=== PATIENT | male | born 1935 | race Caucasian/White ===

== ENCOUNTER 2017-03-06 08:50 | Inpatient (IN) | payer MEDICARE, BC ==
[2017-02-26 11:02] VITALS: BMI 32.4
[~2017-03-06 08:50] MED LIST: ACETAMINOPHEN TAB 500 MG TAB PO ONE; HYDROmorphone 0.5 MG/0.5 ML SYRINGE IVP PRN; LIDOCAINE 1% 20 ML VIAL (10MG/ML) FOR IV START INTRADERMA PRN; MELOXICAM 7.5 MG TAB PO ONE; ONDANSETRON 4 MG/2 ML VIAL IVP ONE; ROPIVACAINE 246.25 MG, EPINEPHrine 0.5 MG, KETOROLAC 30 MG, cloNIDine HCL/PF 80 MCG, WA... MISCELLANE ONE; TRANEXAMIC ACID 1,000 MG in SODIUM CHLORIDE 0.9% 100 ML IVPB ONE
[2017-03-06] MEDS: LACTATED RINGERS 1,000 ML IV SCH ×2 (09:33→10:43)
[2017-03-06 09:34] LABS: Glucose,Whole Blood 94 mg/dL (75-99)
[2017-03-06] MEDS ORDERED: MIDAZOLAM 2 MG/2 ML VIAL IVP ONE (09:48)
[2017-03-06] MEDS ORDERED: ePHEDrine 50 MG/ML 1 ML AMP ONE (10:44)
[2017-03-06] MEDS ORDERED: PHENYLEPHRINE-0.9% NACL SYG 1 MG/10 ML SYRINGE ONE (10:44)
[2017-03-06] MEDS ORDERED: TRANEXAMIC ACID 1,000 MG/10 ML VIAL ONE (10:44)
[2017-03-06] MEDS ORDERED: MIDAZOLAM 2 MG/2 ML VIAL ONE (10:44)
[2017-03-06] MEDS ORDERED: PROPOFOL 10 MG/ML 20 ML VIAL IV ONE (10:44)
[2017-03-06] MEDS ORDERED: SODIUM CHLORIDE 0.9% 100 ML BAG ONE (10:44)
[2017-03-06] MEDS ORDERED: fentaNYL (PF) 50 MCG/ML 2 ML AMP ONE (10:44)
[2017-03-06] MEDS: ceFAZolin IN SWFI 2 GM/20 ML SYRINGE IVP ONE ×2 (10:51→11:07)
[2017-03-06] MEDS ORDERED: ceFAZolin 3,000 MG in SODIUM CHLORIDE 0.9% IRRIGATIO 3,000 ML IRRIGATION ONE (10:52)
[2017-03-06] MEDS ORDERED: NA PHOS,M-B/NA PHOS,DI-BA 133 ML ENEMA RECTAL PRN (11:08)
[2017-03-06] MEDS ORDERED: MAGNESIUM HYDROXIDE 2,400 MG/10 ML CUP PO PRN (11:08)
[2017-03-06] MEDS ORDERED: ONDANSETRON 4 MG/2 ML VIAL IVP PRN (11:08)
[2017-03-06] MEDS ORDERED: NALOXONE 0.4 MG/ML 1 ML VIAL IV PRN (11:08)
[2017-03-06] MEDS ORDERED: DIAZEPAM 5 MG TAB PO PRN ×2 (11:08)
[2017-03-06] MEDS ORDERED: HYDROmorphone 1 MG/ML 1 ML SYRINGE IVP PRN ×4 (11:08)
[2017-03-06] MEDS ORDERED: BISACODYL 10 MG SUPP RECTAL PRN (11:08)
[2017-03-06] MEDS ORDERED: HYDROcodone/APAP 5-325MG 1 EACH TAB PO PRN (11:08)
[2017-03-06] MEDS ORDERED: ROPIVACAINE 1,100 MG, SODIUM CHLORIDE 0.9% 330 ML MISCELLANE PRN ×2 (11:12)
--- NOTE | 2017-03-06 11:13 | P.ONQ ---
Anesthesiology Proc Note - PNB - Peripheral Nerve Block Performed Left Adductor Canal Indication: Acute Post-Operative Pain, Requested by physician (Leonard Chappell) Sedation Type: Sedate with meaningful contact maintained Preparation: Sterile Dressing Position: Supine Catheter: Indwelling Needle Types: Other (see comment) (Bin) Needle Size: 100mm (4") Needle Gauge: 20 Technique: Ultrasound Injectate: 0.5% Ropivacaine (see comment for volume) (20cc) Blood Aspirated: No Pain Paresthesia on Injection Noted: No Resistance on Injection: Normal Events: Uneventful and Well Tolerated
[2017-03-06] MEDS ORDERED: LACTATED RINGERS 1,000 ML IV ONE (11:41)
--- NOTE | 2017-03-06 12:19 | P.OP ---
Date of Procedure: 03/06/17 Preoperative Diagnosis: Severe osteoarthritis left knee Postoperative Diagnosis: Severe osteoarthritis left knee Procedure(s) Performed: Left total knee arthroplasty Implants: Garcia [employer] Nephew Oxinium femoral component size 6, left Garcia & Nephew Abbey II left nonporous tibial baseplate size 6 Garcia [employer] Nephew size 11 mm Legion XLPE high flexion articular insert, size 5-6 Garcia [employer] Nephew Abbey II resurfacing patellar component, 32 mm All components were cemented using Tracy bone cement.. The articulation is Oxinium on polyethylene. Anesthesia: spinal Surgeon: Leonard Chappell Electric Refrigerator Servicer #1: Jackelyn Hagen Estimated Blood Loss (ml): 50 Pathology: other (Bone and cartilage) Condition: stable Disposition: PACU Indications for Procedure: After failure of conservative treatment we discussed the surgical and nonsurgical treatment options at length. Patient wishes to proceed with a total knee arthroplasty. Complications specific to this procedure were discussed at length, including but not limited to infection, bleeding, stiffness , and nerve injury. Patient is aware of all these complications and informed consent was obtained Operative Findings: The operative findings are consistent with severe osteoarthritis of the left knee Description of Procedure: Patient was seen in the preoperative area consent was reviewed and operative site was marked with a skin marker. An adductor canal pain catheter was placed by anesthesia in the preoperative area. Patient was then brought to the operating room and given preoperative antibiotics intravenously. A spinal anesthetic was administered by the anesthesia department. A tourniquet was placed on the upper thigh and the lower extremity was prepped and draped in usual sterile fashion. A gram of transexamic acid was given. A universal timeout was then performed which confirmed the patient's name, surgical site, ALLERGIES, and consent. The lower extremity was then exsanguinated and tourniquet was inflated to 250 mmHg. A standard and anterior midline approach to the knee was performed. The skin and subcutaneous tissue was dissected down to the patellar tendon. A medial parapatellar arthrotomy was then performed. The knee was then extended, the patellar was everted, and the knee was again flexed. Anterior horns of both menisci were excised, and a release was performed to the posterior medial aspect of the knee. On gross visual inspection, there was complete loss of articular cartilage in the medial and patellofemoral joint spaces. There was also significant cartilage damage in the lateral compartment. There were multiple periarticular osteophytes which were then removed with a Ronguer. The femoral canal was then opened with the appropriate drill, and the intramedullary femoral cutting guide was then placed and set for 4 of valgus. The distal femoral cutting block was then pinned in place, and the distal femur was then cut. The cutting block was then removed and the cut was checked for flatness. Next, the sizing guide was then placed and set for 3 external rotation based off of the epicondylar axis and Whitesides line. After the femur was sized, the appropriate 4-in-1 cutting block was then pinned in place. The anterior condyles were cut without notching. The posterior and chamfer cuts were performed while protecting the collateral ligaments. The cutting block was then removed, and the femoral canal was plugged with autologous bone. Attention was then directed to the tibia. The remaining ACL was removed with a Ronguer, and the tibia was then gently subluxed forward with a large bent knee retractor. Any remaining menisci was excised. The posterior lateral corner was cauterized in order to cauterize the lateral geniculate artery. The extra medullary tibial cutting guide was then placed, set for the appropriate rotation , slope, and depth of resection. The proximal tibia cutting guide was then pinned in place. Proximal tibia was then cut and sized. Next trials were then placed with the appropriate-sized insert. The knee was able to fully extend and flex to 130 and was stable throughout all range of motion. The knee was then extended, patella everted. Patella was then measured, and then using an osteotomy guide, the patella was cut at the appropriate level. The patella was then measured and drilled and the patella trial was then placed. The knee was then taken through range of motion with the patella trial and the patella tracked normally. The knee was then extended patella trial was then removed and the patella was everted. Knee was then flexed and lug holes were drilled through the femoral trial and the femoral trial was then removed. The tibial was then exposed, and the tibial broach guide was then pinned in place after it was set for the appropriate rotation to allow for the most coverage without overhang. The tibia was then reamed and broached. The cut surfaces of bone were then irrigated with pulsatile lavage. The posterior structures were injected with the ropivacaine solution. The knee was also irrigated with Irrisept solution. The components were then opened, the cement was mixed, and the components were then cemented in place. The cement was allowed to harden with the knee in full extension. While the cement was hardening, the remaining soft tissues were then injected with a ropivacaine solution, which consisted of 246.25 mg of ropivacaine, 0.5 mg of epinephrine, 30 mg of Toradol, 80 g of clonidine, and 48.45 mL of sterile water, for a total of 100 mL of fluid injected. After the cemented hardened. The tourniquet was released, and hemostasis was obtained. A second gram of transexamic acid was given. The knee was again irrigated. The knee was again taken through range of motion and found to be stable throughout all range of motion of 0-130 , and the patella tracked normally. The fascia was then closed with #2 strata fix suture. The subcutaneous tissue was closed with 3-0 Vicryl and 3-0 strata fix. Dermabond glue was used for the skin and placed with the knee in flexion. The patient was placed in a sterile silver dressing. Patient was then transferred to recovery room in stable condition. The energy assistant BAKARI Lobo was required due the complexity surgery and the need for a skilled surgical instrument technician. She assisted in positioning, draping, retraction, and closure of the wound.
--- NOTE | 2017-03-06 13:18 | XR ---
EXAMINATION TYPE: XR knee limited LT DATE OF EXAM: 03/06/2017 COMPARISON: NONE HISTORY: 81-year-old male evaluation for postoperative abnormality and alignment TECHNIQUE: 2 views FINDINGS: Images show placement of left total knee arthroplasty. Both distal femoral and proximal tibial compon ents of the prosthesis appear well seated without periprosthetic fracture. There is anterior soft tis veronica swelling with soft tissue gas as well as joint effusion and intra-articular air relating to recen t operation. Saphenous vein harvesting surgical clips are present medially. Diffuse muscular atrophy. IMPRESSION: Uncomplicated postoperative appearance left total knee arthroplasty.
[2017-03-06] MEDS: SODIUM CHLORIDE 0.9% 1,000 ML IV SCH (15:15)
[2017-03-06] MEDS: HYDROcodone/APAP 5-325MG 1 EACH TAB PO PRN ×2 (18:21→23:24)
[2017-03-06 19:35] VITALS: RESP 16
[2017-03-06] MEDS: ceFAZolin IN SWFI 2 GM/20 ML SYRINGE IVP SCH (20:59)
[2017-03-06] MEDS: METOPROLOL TARTRATE 50 MG TAB PO SCH (20:59)
[2017-03-06] MEDS: ASPIRIN 325 MG TAB PO SCH (20:59)
[2017-03-06] MEDS ORDERED: SENNOSIDES-DOCUSATE SODIUM 1 EACH TAB PO SCH (21:00)
[2017-03-06] MEDS: hydrOXYzine PAMOATE 25 MG CAP PO PRN (23:25)
--- NOTE | 2017-03-07 01:02 | P.CONS ---
History of Present Illness - Reason for Consult Consult date: 03/06/17 Medical management of hypertension and CAD and other medical problems - Chief Complaint Elective left knee total arthroplasty - History of Present Illness Patient is a 81-year-old pleasant male with a known history of coronary artery disease with prior stent placement and CABG in 2009, GERD, are sure that his hand BPH was admitted to the hospital for left total knee arthroplasty due to osteoarthritis. Currently pain is controlled with pain pump. No complaints of chest pain or short of breath. No nausea vomiting or abdominal pain. Patient tolerated the procedure very well. Currently sitting in a chair. No fever no chills. No nausea vomiting. Denied any other problems at this time Review of Systems Constitutional: Patient denies any fever or chills . No generalized weakness or weight loss. Abdomen: Patient denied nausea vomiting and diarrhea and abdominal pain. Cardiovascular: Patient denies any chest pain or short of breath no palpitations. Respiratory: patient denied any cough is from production. No shortness of breath Neurologic: Patient denied any numbness or tingling headache. Musculoskeletal: Patient denies any complaints of joint swelling or deformity. Skin: Negative Psychiatric: Negative Endocrine: No heat or cold intolerance. No recent weight gain. Genitourinary: No dysuria or hematuria. All other 14 point ROS negative except the above Past Medical History Past Medical History: Coronary Artery Disease (CAD), Eye Disorder, GERD/Reflux, Osteoarthritis (OA), Prostate Disorder Additional Past Medical History / Comment(s): "elevated kidney blood test", legally blind, uses knee brace on left knee History of Any Multi-Drug Resistant Organisms: None Reported Past Surgical History: Coronary Bypass/CABG, Heart Catheterization With Stent, Tonsillectomy Additional Past Surgical History / Comment(s): 2 cardiac stents, CABG 2009, rt knee replacement, oh cataracts Past Anesthesia/Blood Transfusion Reactions: Motion Sickness Additional Past Anesthesia/Blood Transfusion Reaction / Comm: motiion sickness as child, Date of Last Stent Placement:: 12/2009 Past Psychological History: No Psychological Hx Reported Smoking Status: Former smoker Past Alcohol Use History: Occasional Additional Past Alcohol Use History / Comment(s): started smoking age 26, quit smoking age 51, 1 PPD Past Drug Use History: None Reported - Past Family History Mother Family Medical History: No Reported History Medications and Allergies Home Medications Medication Instructions Recorded Confirmed Type Aspirin [Adult Low Dose Aspirin EC] 81 mg PO DAILY 02/26/17 03/06/17 History Celecoxib [CeleBREX] 100 mg PO HS 02/26/17 03/06/17 History Cholecalciferol [Vitamin D3] 1,000 unit PO DAILY 02/26/17 03/06/17 History Cyclobenzaprine [Flexeril] 10 mg PO DAILY 02/26/17 03/06/17 History Lovastatin [Mevacor] 20 mg PO DAILY 02/26/17 03/06/17 History Metoprolol Tartrate [Lopressor] 50 mg PO BID 02/26/17 03/06/17 History Multivitamins, Thera [Multivitamin 1 tab PO DAILY 02/26/17 03/06/17 History (formulary)] Tamsulosin [Flomax] 0.4 mg PO DAILY 02/26/17 03/06/17 History Allergies Allergy/AdvReac Type Severity Reaction Status Date / Time No Known Allergies Allergy Verified 03/06/17 09:01 Physical Exam Vitals: Vital Signs Temp Pulse Pulse Resp BP BP Pulse Ox 03/06/17 19:28 97.2 F L 66 16 172/79 03/06/17 16:45 66 14 149/86 03/06/17 16:41 66 14 03/06/17 16:30 66 16 132/63 96 03/06/17 16:15 65 16 139/77 98 03/06/17 16:00 66 16 145/63 97 03/06/17 15:45 65 16 149/86 98 03/06/17 15:30 71 16 116/58 98 03/06/17 15:15 66 16 142/81 98 03/06/17 15:00 68 16 116/58 95 03/06/17 14:45 66 16 142/81 96 03/06/17 14:30 64 16 135/75 98 03/06/17 14:15 98.6 F 62 16 139/73 99 03/06/17 13:55 64 14 142/74 96 03/06/17 13:42 63 14 144/76 98 03/06/17 13:27 64 14 162/72 96 03/06/17 13:12 64 14 129/71 97 03/06/17 12:57 64 14 125/67 95 03/06/17 12:42 97.5 F L 70 16 121/61 96 03/06/17 10:10 69 16 136/78 99 03/06/17 09:20 97.5 F L 71 20 163/87 98 Intake and Output 03/06/17 03/06/17 03/06/17 06:59 14:59 22:59 Intake Total 1801 500 Output Total 50 Balance 1751 500 Intake: IV 1801 Oral 500 Output: Estimated Blood Loss 50 Other: # Voids 1 PHYSICAL EXAMINATION: Patient is lying in the bed comfortably, no acute distress, awake alert and oriented.. HEENT: Normocephalic. Neck is supple. Pupils reactive. Nostrils clear. Oral cavity is moist. Ears reveal no drainage. Neck reveals no JVD, carotid bruits, or thyromegaly. CHEST EXAMINATION: Trachea is central. Symmetrical expansion. Lung mart clear to auscultation and percussion. CARDIAC: Normal S1, S2 with no gallops. No murmurs ABDOMEN: Soft. Bowel sounds normal. No organomegaly. No abdominal bruits. Extremities: reveal no edema. No clubbing or cyanosis Neurologically awake, alert, oriented x3 with well-coordinated movements. Patient is legally blind Skin: No rash or skin lesions. Psychiatric: Operative. Nonsuicidal Musculoskeletal: No joint swelling or deformity. Normal range of motion. Assessment and Plan Assessment: #1 left total knee arthroplasty postoperative day 0 #2 osteoarthritis of multiple joints with prior right knee arthroplasty #3 bilateral cataracts and legally blind #4 coronary artery disease with stent placement and CABG in 2009 #5 BPH #6 GERD #7 History of smoking. started smoking age 26, quit smoking age 51, 1 PPD Plan: Patient will be continued on pain medications currently on pump. Will continue the home medications and encouraged ablation. Continue the DVT prophylaxis and follow closely. Incentive spirometry and bowel regimen. Further recommendations based on the clinical course. Thank you for your consult
[2017-03-07] MEDS: hydrOXYzine PAMOATE 25 MG CAP PO PRN (04:30)
[2017-03-07] MEDS: HYDROcodone/APAP 5-325MG 1 EACH TAB PO PRN ×2 (04:30→09:45)
[2017-03-07] MEDS: SODIUM CHLORIDE 0.9% 1,000 ML IV SCH (04:34)
[2017-03-07] MEDS: ceFAZolin IN SWFI 2 GM/20 ML SYRINGE IVP SCH (04:34)
[2017-03-07] MEDS: LACTATED RINGERS 1,000 ML IV SCH (05:26)
[2017-03-07 07:42] LABS: Basophils % (A) 1 %; CH 33.2; Eosinophils # (A) 0.2 k/uL (0-0.7); Eosinophils % (A) 4 %; HCT 40.6 % (39.0-53.0); HDW 2.52; HGB 12.8 gm/dL (13.0-17.5); Luc # (Auto) 0.07; Luc % (Auto) 1; Lymphocytes # (A) 0.8 k/uL (1.0-4.8); Lymphocytes % (A) 17 %; MCH 31.8 pg (25.0-35.0); MCHC 31.5 g/dL (31.0-37.0); Monocytes # (A) 0.4 k/uL (0-1.0); Monocytes % (A) 8 %; Neutrophils # (A) 3.4 k/uL (1.3-7.7); Neutrophils % (A) 69 %; RBC 4.02 m/uL (4.30-5.90); RDW 12.2 % (11.5-15.5)
--- NOTE | 2017-03-07 07:50 | P.PN ---
Progress Note - Text The patient is status post left adductor canal catheter placement. The catheter was placed for postoperative pain control, status post total left arthroplasty. Ropivacaine 0.2% is infusing at 8 mLs per hour. The patient has no complaints of left lower extremity numbness or weakness. Patient's VAS score is 2-10. Assessment: Patient's adductor canal catheter is in place and working appropriately. Plan: continue infusion and adjust it as needed.
[2017-03-07 08:22] VITALS: BP 150/84; PULSE 68; TEMP 97.8
[2017-03-07] MEDS ORDERED: MELOXICAM 7.5 MG TAB PO SCH (09:00)
[2017-03-07] MEDS: ASPIRIN 325 MG TAB PO SCH (09:47)
[2017-03-07] MEDS: METOPROLOL TARTRATE 50 MG TAB PO SCH (09:47)
--- NOTE | 2017-03-07 09:56 | P.DS ---
Providers Date of admission: 03/06/17 08:50 Expected date of discharge: 03/07/17 Attending physician: Leonard Chappell Consults: 03/06/17 11:08 Consult Physician Routine Consulting Provider: Destinee Lee Consult Reason/Comments: medical management Do you want consulting provider notified?: Yes Primary care physician: Lucinda Suh - Discharge Diagnosis(es) (1) Primary osteoarthritis of left knee Current Visit: Yes Status: Acute (2) S/P total knee arthroplasty Current Visit: Yes Status: Acute Hospital Course: This is a 81-year-old male with known history of degenerative arthritis of the left knee. The patient presents for evaluation. After discussion and consideration patient elects to proceed with total knee arthroplasty. The patient is seen preoperatively by Dr. Leonard Chappell and cleared for surgery. Patient is admitted to [facility] on 03/06/2017 for total knee arthroplasty. The procedures performed without complication or sequelae. The patient is doing well postoperatively. Labs and vital signs are stable on day of discharge. On day of discharge patient's knee incision is healing well. There is minimal erythema. There is no drainage noted at this time. There is minimal soft tissue swelling to the knee. Patient has full foot and ankle motion without difficulty or pain. Neurovascular status to the left lower extremity is intact. Patient is discharged home in good condition. Please see med rec for accurate list of home medications. Plan - Discharge Summary Discharge Rx Participant: Yes New Discharge Prescriptions: New Aspirin 325 mg PO BID #60 tab HYDROcodone/APAP 5-325MG [[place] 5-325] 1 - 2 tab PO Q4-6H PRN #90 tab PRN Reason: Pain Sennosides-Docusate Sodium [Senokot-S] 1 tab PO BID #60 tablet No Action Metoprolol Tartrate [Lopressor] 50 mg PO BID Celecoxib [CeleBREX] 100 mg PO HS Tamsulosin [Flomax] 0.4 mg PO DAILY Lovastatin [Mevacor] 20 mg PO DAILY Cholecalciferol [Vitamin D3] 1,000 unit PO DAILY Multivitamins, Thera [Multivitamin (formulary)] 1 tab PO DAILY Aspirin [Adult Low Dose Aspirin EC] 81 mg PO DAILY Cyclobenzaprine [Flexeril] 10 mg PO DAILY Discharge Medication List Aspirin [Adult Low Dose Aspirin EC] 81 mg PO DAILY 02/26/17 [History] Celecoxib [CeleBREX] 100 mg PO HS 02/26/17 [History] Cholecalciferol [Vitamin D3] 1,000 unit PO DAILY 02/26/17 [History] Cyclobenzaprine [Flexeril] 10 mg PO DAILY 02/26/17 [History] Lovastatin [Mevacor] 20 mg PO DAILY 02/26/17 [History] Metoprolol Tartrate [Lopressor] 50 mg PO BID 02/26/17 [History] Multivitamins, Thera [Multivitamin (formulary)] 1 tab PO DAILY 02/26/17 [History ] Tamsulosin [Flomax] 0.4 mg PO DAILY 02/26/17 [History] Aspirin 325 mg PO BID #60 tab 03/07/17 [Rx] HYDROcodone/APAP 5-325MG [[place] 5-325] 1 - 2 tab PO Q4-6H PRN #90 tab 03/07/17 [ Rx] Sennosides-Docusate Sodium [Senokot-S] 1 tab PO BID #60 tablet 03/07/17 [Rx] Follow up Appointment(s)/Referral(s): [facility], [NON-STAFF] - Leonard Chappell DO [Doctor of Osteopathic Medicine] - 1 Week Ambulatory/Diagnostic Orders: Continuous Passive Motion (CPM) Machine [DME.AMB1] Time Frame: 3 Weeks, Location : Determined By Patient Activity/Diet/Wound Care/Special Instructions: Weightbearing as tolerated with a walker CPM 5-6h daily Leave dressing intact. May be removed by home care nurse in 7 days, 03/13/2017. May shower with dressing on. [facility] with questions or concerns [phone] Discharge Disposition: HOME WITH HOME HEALTH SERVICES
--- NOTE | 2017-03-08 01:18 | P.PN ---
Subjective Progress Note Date: 03/07/17 Principal diagnosis: Knee arthroplasty Patient is a 81-year-old pleasant male with a known history of coronary artery disease with prior stent placement and CABG in 2009, GERD, are sure that his hand BPH was admitted to the hospital for left total knee arthroplasty due to osteoarthritis. Currently pain is controlled with pain pump. No complaints of chest pain or short of breath. No nausea vomiting or abdominal pain. Patient tolerated the procedure very well. Currently sitting in a chair. No fever no chills. No nausea vomiting. Denied any other problems at this time 03/07/2017 Patient denied any new complaints today. Complains of right thigh stiffness with walking. But improved from yesterday. No nausea vomiting or abdominal pain. No acute overnight issues, patient is able to walk with physical therapy. Patient is being discharged home today. Objective - Vital Signs Vital signs: Vital Signs Temp 97.8 F 03/07/17 08:22 Pulse 68 03/07/17 08:22 Resp 16 03/07/17 00:20 BP 150/84 03/07/17 08:22 Pulse Ox 99 03/07/17 08:22 Intake & Output 03/06/17 03/07/17 03/07/17 18:59 06:59 18:59 Intake Total 1801 500 400 Output Total 50 Balance 1751 500 400 Intake: IV 1801 Oral 500 400 Output: Estimated Blood Loss 50 Other: # Voids 1 - Exam Patient is lying in the bed comfortably, no acute distress, awake alert and oriented.. HEENT: Normocephalic. Neck is supple. Pupils reactive. Nostrils clear. Oral cavity is moist. Ears reveal no drainage. Neck reveals no JVD, carotid bruits, or thyromegaly. CHEST EXAMINATION: Trachea is central. Symmetrical expansion. Lung mart clear to auscultation and percussion. CARDIAC: Normal S1, S2 with no gallops. No murmurs ABDOMEN: Soft. Bowel sounds normal. No organomegaly. No abdominal bruits. Extremities: reveal no edema. No clubbing or cyanosis Neurologically awake, alert, oriented x3 with well-coordinated movements. Patient is legally blind Skin: No rash or skin lesions. Psychiatric: Operative. Nonsuicidal Musculoskeletal: No joint swelling or deformity. Normal range of motion. Left knee surgical site intact - Labs CBC & Chem 7: 03/07/17 07:05 Labs: Abnormal Lab Results - Last 24 Hours (Table) 03/07/17 Range/Units 07:05 RBC 4.02 L (4.30-5.90) m/uL Hgb 12.8 L (13.0-17.5) gm/dL MCV 101.0 H (80.0-100.0) fL Lymphocytes # 0.8 L (1.0-4.8) k/uL Assessment and Plan Assessment: #1 left total knee arthroplasty postoperative day 1 #2 osteoarthritis of multiple joints with prior right knee arthroplasty #3 bilateral cataracts and legally blind #4 coronary artery disease with stent placement and CABG in 2009 #5 BPH #6 GERD #7 History of smoking. started smoking age 26, quit smoking age 51, 1 PPD Plan: Patient will be continued on home medications and encouraged ablation. Continue the DVT prophylaxis. Incentive spirometry and bowel regimen. Patient is a stable to be discharged home.
== END 2017-03-07 14:38 | disposition home health service (06) | DRG 470 ==
LOC: 2ORMAIN 08:50 → 3SUR 13:21
PROVIDERS: ADMIT Orthopaedic Surgery; ATTEND Orthopaedic Surgery
PROC: 0SRD069 Replacement of Left Knee Joint with Oxidized Zirconium on Polyethylene Synthetic Substitute, Cemented, Open Approach (ICD-10-PCS; principal; 2017-03-06 10:30)
DX: M17.12 Unilateral primary osteoarthritis, left knee (principal); I12.9 Hypertensive chronic kidney disease with stage 1 through stage 4 chronic kidney disease, or unspecified chronic kidney disease; H54.8 Legal blindness, as defined in USA; I25.10 Atherosclerotic heart disease of native coronary artery without angina pectoris; K21.9 Gastro-esophageal reflux disease without esophagitis; N40.0 Benign prostatic hyperplasia without lower urinary tract symptoms; Z79.82 Long term (current) use of aspirin; Z79.899 Other long term (current) drug therapy; Z87.891 Personal history of nicotine dependence; Z95.5 Presence of coronary angioplasty implant and graft; Z96.651 Presence of right artificial knee joint; Z95.1 Presence of aortocoronary bypass graft; N18.9 Chronic kidney disease, unspecified
CPT/HCPCS: 36415; 71020; 80053; 81003; 83605; 85025; 87040; 87086; 88300; 99283

== ENCOUNTER 2017-03-07 22:56 | Emergency (ER) | payer MEDICARE, BC ==
[2017-03-07 23:01] VITALS: TEMP 100.3
--- NOTE | 2017-03-07 23:19 | ED ---
Fever HPI - General Chief Complaint: Fever Stated Complaint: fever Time Seen by Provider: 03/07/17 23:03 Source: patient, family Mode of arrival: ambulatory Limitations: no limitations - History of Present Illness Initial Comments: This patient is an 81-year-old man who presents to be evaluated after he felt flushed all day. The patient had TKA performed here by Dr. Chappell yesterday. The patient states that he was sent home today. He has been feeling like he had a fever but did not have a working thermometer at home. He has also not been feeling his usual self, stating that he has had some fatigue. He also reports that he has not had any sleep since having had surgery. The patient is denying cough, dyspnea, change in urination or bowel movements, any increase in pain at the surgical site or rash. Patient does have a little bit of sore throat, but is not having any difficulty with taking fluids or swallowing. MD Complaint: fever -: hour(s) Temperature Source: subjective Associated Symptoms: sore throat Treatments Prior to Arrival: none - Related Data Home Medications Medication Instructions Recorded Confirmed Cholecalciferol [Vitamin D3] 1,000 unit PO DAILY 02/26/17 03/07/17 Cyclobenzaprine [Flexeril] 5 mg PO DAILY 02/26/17 03/07/17 Lovastatin [Mevacor] 20 mg PO DAILY 02/26/17 03/07/17 Metoprolol Tartrate [Lopressor] 50 mg PO BID 02/26/17 03/07/17 Multivitamins, Thera [Multivitamin 1 tab PO DAILY 02/26/17 03/07/17 (formulary)] Tamsulosin [Flomax] 0.4 mg PO DAILY 02/26/17 03/07/17 Omeprazole 20 mg PO DAILY PRN 03/07/17 03/07/17 Previous Rx's Medication Instructions Recorded Aspirin 325 mg PO BID #60 tab 03/07/17 HYDROcodone/APAP 5-325MG [[place] 1 - 2 tab PO Q4-6H PRN #90 tab 03/07/17 5-325] Sennosides-Docusate Sodium 1 tab PO BID #60 tablet 03/07/17 [Senokot-S] Allergies Allergy/AdvReac Type Severity Reaction Status Date / Time No Known Allergies Allergy Verified 03/07/17 23:17 Review of Systems ROS Statement: Those systems with pertinent positive or pertinent negative responses have been documented in the HPI. ROS Other: All systems not noted in ROS Statement are negative. Constitutional: Reports: fever. Denies: chills ENT: Reports: throat pain. Denies: ear pain Respiratory: Denies: cough, dyspnea Cardiovascular: Denies: chest pain, palpitations, edema, syncope Gastrointestinal: Denies: abdominal pain, vomiting, diarrhea Genitourinary: Denies: dysuria, frequency, hematuria Musculoskeletal: Denies: back pain Skin: Denies: rash Neurological: Denies: headache Past Medical History Past Medical History: Coronary Artery Disease (CAD), Eye Disorder, GERD/Reflux, Osteoarthritis (OA), Prostate Disorder Additional Past Medical History / Comment(s): "elevated kidney blood test", legally blind, uses knee brace on left knee History of Any Multi-Drug Resistant Organisms: None Reported Past Surgical History: Coronary Bypass/CABG, Heart Catheterization With Stent, Tonsillectomy Additional Past Surgical History / Comment(s): 2 cardiac stents, CABG 2009, rt knee replacement, oh cataracts Past Anesthesia/Blood Transfusion Reactions: Motion Sickness Additional Past Anesthesia/Blood Transfusion Reaction / Comment(s): motiion sickness as child, Date of Last Stent Placement:: 12/2009 Past Psychological History: No Psychological Hx Reported Smoking Status: Former smoker Past Alcohol Use History: Occasional Past Drug Use History: None Reported - Past Family History Mother Family Medical History: No Reported History General Exam Limitations: no limitations General appearance: alert, in no apparent distress Head exam: Present: atraumatic, normocephalic Eye exam: Present: normal appearance Neck exam: Present: normal inspection, full ROM Respiratory exam: Present: normal lung sounds bilaterally. Absent: respiratory distress, wheezes, rales, rhonchi, stridor Cardiovascular Exam: Present: regular rate, normal rhythm, normal heart sounds. Absent: systolic murmur, diastolic murmur, rubs, gallop GI/Abdominal exam: Present: soft. Absent: distended, tenderness, guarding, rebound, mass Extremities exam: Present: other (The patient does have some soft tissue swelling about the left knee. The surgical incision has a normal postoperative appearance, without warmth, erythema or any drainage.). Absent: tenderness, pedal edema, calf tenderness Back exam: Present: normal inspection. Absent: CVA tenderness (R), CVA tenderness (L) Neurological exam: Present: alert Skin exam: Present: warm, dry, intact, normal color. Absent: rash Course Vital Signs 03/07/17 22:58 Temperature 100.3 F H Pulse Rate 87 Respiratory 20 Rate Blood Pressure 145/80 O2 Sat by Pulse 97 Oximetry Medical Decision Making - Medical Decision Making Patient is an 81-year-old man status post left TKA. He had some borderline fever but really no other symptoms. Our workup here is negative and I was informing of this, and then going to page the orthopedist on-call for the patient states that he is now awake for that and will call the morning. Discussed appropriate follow-up as well as return parameters. - Lab Data Result diagrams: 03/07/17 23:32 03/07/17 23:32 Lab Results 03/07/17 03/07/17 03/07/17 Range/Units 23:32 23:32 23:32 WBC 5.5 (3.8-10.6) k/uL RBC 3.92 L (4.30-5.90) m/uL Hgb 12.8 L (13.0-17.5) gm/dL Hct 38.2 L (39.0-53.0) % MCV 97.5 (80.0-100.0) fL MCH 32.6 (25.0-35.0) pg MCHC 33.4 (31.0-37.0) g/dL RDW 13.4 (11.5-15.5) % Plt Count 156 (150-450) k/uL Neutrophils % 75 % Lymphocytes % 11 % Monocytes % 8 % Eosinophils % 3 % Basophils % 1 % Neutrophils # 4.2 (1.3-7.7) k/uL Lymphocytes # 0.6 L (1.0-4.8) k/uL Monocytes # 0.5 (0-1.0) k/uL Eosinophils # 0.2 (0-0.7) k/uL Basophils # 0.0 (0-0.2) k/uL Sodium 136 L (137-145) mmol/L Potassium 4.9 (3.5-5.1) mmol/L Chloride 104 (98-107) mmol/L Carbon Dioxide 24 (22-30) mmol/L Anion Gap 8 mmol/L BUN 32 H (9-20) mg/dL Creatinine 1.70 H (0.66-1.25) mg/dL Est GFR (MDRD) Af Amer 47 (>60 ml/min/1.73 sqM) Est GFR (MDRD) Non-Af 39 (>60 ml/min/1.73 sqM) Glucose 92 (74-99) mg/dL Plasma Lactic Acid Sandeep 0.7 (0.7-2.0) mmol/L Calcium 8.9 (8.4-10.2) mg/dL Total Bilirubin 0.7 (0.2-1.3) mg/dL AST 25 (17-59) U/L ALT 30 (21-72) U/L Alkaline Phosphatase 91 (38-126) U/L Total Protein 5.9 L (6.3-8.2) g/dL Albumin 3.4 L (3.5-5.0) g/dL Urine Color Urine Appearance (Clear) Urine pH (5.0-8.0) Ur Specific [place] (1.001-1.035) Urine Protein (Negative) Urine Glucose (UA) (Negative) Urine Ketones (Negative) Urine Blood (Negative) Urine Nitrite (Negative) Urine Bilirubin (Negative) Urine Urobilinogen (<2.0) mg/dL Ur Leukocyte Esterase (Negative) 03/08/17 Range/Units 00:00 WBC (3.8-10.6) k/uL RBC (4.30-5.90) m/uL Hgb (13.0-17.5) gm/dL Hct (39.0-53.0) % MCV (80.0-100.0) fL MCH (25.0-35.0) pg MCHC (31.0-37.0) g/dL RDW (11.5-15.5) % Plt Count (150-450) k/uL Neutrophils % % Lymphocytes % % Monocytes % % Eosinophils % % Basophils % % Neutrophils # (1.3-7.7) k/uL Lymphocytes # (1.0-4.8) k/uL Monocytes # (0-1.0) k/uL Eosinophils # (0-0.7) k/uL Basophils # (0-0.2) k/uL Sodium (137-145) mmol/L Potassium (3.5-5.1) mmol/L Chloride (98-107) mmol/L Carbon Dioxide (22-30) mmol/L Anion Gap mmol/L BUN (9-20) mg/dL Creatinine (0.66-1.25) mg/dL Est GFR (MDRD) Af Amer (>60 ml/min/1.73 sqM) Est GFR (MDRD) Non-Af (>60 ml/min/1.73 sqM) Glucose (74-99) mg/dL Plasma Lactic Acid Sandeep (0.7-2.0) mmol/L Calcium (8.4-10.2) mg/dL Total Bilirubin (0.2-1.3) mg/dL AST (17-59) U/L ALT (21-72) U/L Alkaline Phosphatase (38-126) U/L Total Protein (6.3-8.2) g/dL Albumin (3.5-5.0) g/dL Urine Color Yellow Urine Appearance Clear (Clear) Urine pH 5.0 (5.0-8.0) Ur Specific [place] 1.012 (1.001-1.035) Urine Protein Negative (Negative) Urine Glucose (UA) Negative (Negative) Urine Ketones Negative (Negative) Urine Blood Negative (Negative) Urine Nitrite Negative (Negative) Urine Bilirubin Negative (Negative) Urine Urobilinogen <2.0 (<2.0) mg/dL Ur Leukocyte Esterase Negative (Negative) Disposition Clinical Impression: S/P total knee arthroplasty, Fever Disposition: HOME SELF-CARE Condition: Fair Instructions: Fever in Adults (ED) Referrals: Lucinda Suh III, MD [Primary Care Provider] - 1-2 days
[2017-03-07 23:43] LABS: Basophils % (A) 1 %; CH 32.6; CHCM 33.6; Eosinophils # (A) 0.2 k/uL (0-0.7); Eosinophils % (A) 3 %; HCT 38.2 % (39.0-53.0); HDW 2.37; HGB 12.8 gm/dL (13.0-17.5); Luc # (Auto) 0.08; Luc % (Auto) 2; Lymphocytes # (A) 0.6 k/uL (1.0-4.8); Lymphocytes % (A) 11 %; MCH 32.6 pg (25.0-35.0); MCHC 33.4 g/dL (31.0-37.0); MCV 97.5 fL (80.0-100.0); Monocytes # (A) 0.5 k/uL (0-1.0); Monocytes % (A) 8 %; Neutrophils # (A) 4.2 k/uL (1.3-7.7); Neutrophils % (A) 75 %; RBC 3.92 m/uL (4.30-5.90); RDW 13.4 % (11.5-15.5); WBC 5.5 k/uL (3.8-10.6)
[2017-03-07 23:53] LABS: Calcium 8.9 mg/dL (8.4-10.2); Potassium 4.9 mmol/L (3.5-5.1); Total Bilirubin 0.7 mg/dL (0.2-1.3); Total Protein 5.9 g/dL (6.3-8.2)
--- NOTE | 2017-03-08 00:09 | XR ---
EXAMINATION TYPE: XR chest 2V DATE OF EXAM: 03/07/2017 COMPARISON: 12/19/2012 HISTORY: Fever TECHNIQUE: Frontal and lateral views of the chest are obtained. FINDINGS: Heart is enlarged. There is no gross heart failure. Lungs are clear of consolidation. Ther e is slight coarsening of the markings in the left lower lobe. Thoracic aorta is atheromatous. There are sternal wires. There is spurring in the thoracic spine. IMPRESSION: Cardiomegaly. Mild pulmonary fibrotic changes. No evidence of bronchopneumonia. No signi ficant change compared to old exam.
[2017-03-08 00:13] LABS: Appearance,Urine Clear (Clear); Bilirubin,Urine Negative (Negative); Glucose,Urine (UA) Negative (Negative); Ketones,Urine Negative (Negative); Leukocyte Esterase,Urine Negative (Negative); Nitrite,Urine Negative (Negative); Protein,Urine Negative (Negative); Specific Gravity,Urine 1.012 (1.001-1.035); UA Billing (MACRO vs. MICRO) CHEM; Urobilinogen,Urine <2.0 mg/dL (<2.0)
[2017-03-08 00:55] VITALS: BP 154/73; PULSE 79; RESP 16
== END 2017-03-08 00:55 | disposition home or self-care (01) ==
LOC: EC 22:56
DX: R50.9 Fever, unspecified (principal); R53.83 Other fatigue; Z96.652 Presence of left artificial knee joint; I25.10 Atherosclerotic heart disease of native coronary artery without angina pectoris; K21.9 Gastro-esophageal reflux disease without esophagitis; M19.90 Unspecified osteoarthritis, unspecified site; N42.9 Disorder of prostate, unspecified; H54.8 Legal blindness, as defined in USA; Z87.891 Personal history of nicotine dependence; Z79.899 Other long term (current) drug therapy; Z98.890 Other specified postprocedural states
CPT/HCPCS: 36415; 71020; 80053; 81003; 83605; 85025; 87040; 87086; 99283

== ENCOUNTER 2018-11-05 05:57 | Day surgery (SDC) | payer BC, MEDICARE ==
[~2018-11-05 05:57] MED LIST changes: -ACETAMINOPHEN TAB 500 MG TAB PO ONE; +ALPRAZolam 0.25 MG TAB PO PRN; +ALPRAZolam 0.5 MG TAB PO PRN; +ASPIRIN 325 MG TAB PO STA; +ATORVASTATIN 80 MG TAB PO STA; -HYDROmorphone 0.5 MG/0.5 ML SYRINGE IVP PRN; -LIDOCAINE 1% 20 ML VIAL (10MG/ML) FOR IV START INTRADERMA PRN; -MELOXICAM 7.5 MG TAB PO ONE; +NITROGLYCERIN SL TABS 0.4 MG TAB SUBLINGUAL PRN; -ONDANSETRON 4 MG/2 ML VIAL IVP ONE; -ROPIVACAINE 246.25 MG, EPINEPHrine 0.5 MG, KETOROLAC 30 MG, cloNIDine HCL/PF 80 MCG, WA... MISCELLANE ONE; -TRANEXAMIC ACID 1,000 MG in SODIUM CHLORIDE 0.9% 100 ML IVPB ONE
[2018-11-05] MEDS: SODIUM CHLORIDE 0.9% 1,000 ML IV SCH ×2 (06:30→11:32)
[2018-11-05] MEDS ORDERED: LIDOCAINE 1% INJ 10MG/ML (20 ML MDV) ONE (07:17)
[2018-11-05] MEDS ORDERED: fentaNYL (PF) 50 MCG/ML 2 ML AMP ONE (07:17)
[2018-11-05] MEDS ORDERED: fentaNYL (PF) 50 MCG/ML 2 ML AMP IV ONE (07:22)
[2018-11-05] MEDS ORDERED: LIDOCAINE 1% INJ 10MG/ML (20 ML MDV) SQ ONE (07:28)
[2018-11-05] MEDS ORDERED: CLOPIDOGREL 75 MG TAB ONE ×2 (07:48)
[2018-11-05] MEDS ORDERED: CLOPIDOGREL 75 MG TAB PO ONE (07:54)
[2018-11-05] MEDS ORDERED: BIVALIRUDIN BOLUS 250 MG/50 ML IV ONE (07:54)
[2018-11-05] MEDS ORDERED: BIVALIRUDIN 250 MG in SODIUM CHLORIDE 0.9% 50 ML IV ONE (07:55)
[2018-11-05] MEDS ORDERED: IOPAMIDOL-370 100ML BTL INJ ONE ×2 (07:58→08:01)
[2018-11-05] MEDS ORDERED: RX INFO: IV CONTRAST WAS GIVEN 1 EACH MISC MISCELLANE PRN (08:24)
[2018-11-05] MEDS ORDERED: MAG HYDROX/AL HYDROX/SIMETH 30 ML CUP PO PRN (08:24)
[2018-11-05] MEDS ORDERED: NITROGLYCERIN SL TABS 0.4 MG TAB SUBLINGUAL PRN (08:24)
[2018-11-05] MEDS ORDERED: ATROPINE SULFATE 0.1 MG/ML 10ML SYRINGE IV PRN (08:24)
[2018-11-05] MEDS ORDERED: ZOLPIDEM 5 MG TAB PO PRN (08:24)
[2018-11-05] MEDS ORDERED: PANTOPRAZOLE 40 MG TABLET PO PRN (08:25)
[2018-11-05] MEDS ORDERED: SODIUM CHLORIDE 0.9% 1,000 ML IV SCH (08:30)
--- NOTE | 2018-11-05 09:25 | CC ---
CARDIAC CATHETERIZATION REPORT Mr. Gaspar is an 82-year-old male with a known history of coronary artery disease, status post coronary artery bypass grafting in 2010, history of percutaneous revascularization who has been complaining of progressive dyspnea on exertion and underwent a myocardial perfusion imaging that revealed a fixed defect with some reversibility in the inferolateral wall. In view of that, recommendation was made regarding cardiac catheterization. The procedure as well as the risks and complications were discussed with the patient who is in full understanding and agreement. PROCEDURE: Patient was brought to experimental machining lab manager in a fasting semi-sedated state after receiving fentanyl and Benadryl and achieving moderate conscious sedated state. Using Xylocaine in the Seldinger technique, a 6-Thai sheath was introduced in the right femoral artery. Selective right and left coronary angiography was performed using 6-Thai 4 bend right José Miguel and 4.5 bend left José Miguel catheter. Multiple views of the coronary artery including hemiaxial views obtained. Following that, a 6-Thai tight pigtail catheter was introduced in the left ventricle and pressures were calculated. The right José Miguel catheter was used to cannulate the saphenous vein graft to the right coronary artery and the KUMAR to the LAD. Images of the grafts were obtained. Following that, the catheters were removed. Images were reviewed. FINDINGS: LEFT MAIN: This is a large-sized vessel bifurcating in the left circumflex, left anterior descending artery. Left main coronary artery has no evidence of high-grade stenosis. LEFT ANTERIOR DESCENDING ARTERY: This vessel is totally occluded proximally at the takeoff of the first septal and diagonal branch. There is minimal antegrade flow proximal to the total occlusion. There is a 99% stenosis. The rest of the vessel has no high-grade stenosis. LEFT CIRCUMFLEX: This is a large nondominant vessel giving rise to a large obtuse marginal branch. The stented segment of proximal left circumflex is patent with about 10% to 20% plaque. In the distal obtuse marginal branch, there is an eccentric 70% plaque. The rest of the vessel has no high-grade stenosis. RIGHT CORONARY ARTERY: This vessel is totally occluded proximally with no antegrade flow. SAPHENOUS VEIN GRAFT TO THE RIGHT CORONARY ARTERY: The proximal distal anastomotic sites are patent. The stented segment is patent. There is retrograde flow into the proximal right coronary artery. KUMAR TO LAD: The distal anastomotic site is patent. The flow into the LAD is brisk. There is no evidence of high-grade stenosis. LEFT VENTRICULOGRAM: Left ventriculogram is not performed. HEMODYNAMICS: There was no gradient across the aortic valve. The left ventricular end- diastolic pressure was 20 mmHg. CONCLUSION: 1. Chronically occluded LAD. 2. Chronically occluded right coronary artery. 3. Patent stent of the left circumflex with significant obstructive disease involving the obtuse marginal branch. 4. Patent saphenous vein graft to the right coronary artery. 5. Patent KUMAR to the LAD. 6. Calcified left main. RECOMMENDATION: In view of finding anatomy, I have recommended proceeding with angioplasty and stenting of the left circumflex. The procedure as well as risks and complications were discussed with the patient who is in full understanding and agreement. MMODL / IJN: [id number] /
--- NOTE | 2018-11-05 09:34 | PTCA ---
PERCUTANEOUSTRANS CORORONARY ANGIOGRAPHY Mr. Gaspar is an 82-year-old male with a history of coronary artery disease who presented with symptoms of progressive dyspnea on exertion underwent a cardiac catheterization that revealed evidence of obstructive disease involving the first obtuse marginal branch. In view of that, recommendation was made regarding angioplasty and stenting. The procedure as well as risks and the complications were discussed with the patient who is in full understanding and agreement. PROCEDURE: A 6-Romanian 4.5 FL guiding catheter introduced in the system. After cannulating the left main, a 0.014 balanced medium weight J-wire was advanced across the lesion, positioned in distal obtuse marginal branch. Subsequently another 0.014 balanced medium weight J- wire was advanced next to the first one in a rohan fashion. Following that, a 2.75 x 15 mm Xience Rose Marie stent was advanced, deployed and post dilated at 16 atmospheres. Following that, the balloon was removed and a 3.0 x 12 mm NC Trek balloon was advanced and one inflation at 14 atmospheres was done. After the last inflation, after appropriate wait the balloon and the guidewire were withdrawn back in the guiding catheter. Images were obtained repeated. Those images reveal stable successful stenting. At that point, the guiding catheter, the balloon and the guidewire were removed. The sheath was sutured in place. The patient was returned to his room in stable condition. Of note, he had no significant EKG changes or chest discomfort with the inflations. He received Angiomax per protocol as well as oral loading dose of clopidogrel. RESULTS: Successful stenting of the first obtuse marginal branch with reduction of stenosis from 70% to 0%. RECOMMENDATION: Patient be continued on aspirin, Plavix and statin. The importance of dual antiplatelet treatment were discussed with the patient and his family and they are in full understanding and agreement. MMODL / IJN: [id number] /
[2018-11-05] MEDS: ATORVASTATIN 20 MG TAB PO SCH (11:30)
[2018-11-05] MEDS: ASPIRIN 81 MG PO SCH (11:30)
[2018-11-05] MEDS: MULTIVITAMINS, THERA 1 EACH TAB PO SCH (11:32)
[2018-11-05] MEDS: CHOLECALCIFEROL 1,000 UNIT TAB PO SCH (11:32)
[2018-11-05] MEDS: METOPROLOL TARTRATE 50 MG TAB PO SCH ×2 (11:32→20:27)
[2018-11-05 11:39] VITALS: BMI 31.3
[2018-11-05] MEDS ORDERED: HYDROcodone/APAP 5-325MG 1 EACH TAB PO PRN (15:55)
[2018-11-05] MEDS: ACETAMINOPHEN TAB 500 MG TAB PO PRN (16:22)
[2018-11-05] MEDS ORDERED: CYCLOBENZAPRINE 5 MG TAB PO SCH (21:00)
[2018-11-06] MEDS: SODIUM CHLORIDE 0.9% 1,000 ML IV SCH (02:22)
[2018-11-06] MEDS: ACETAMINOPHEN TAB 500 MG TAB PO PRN (03:53)
[2018-11-06 06:46] LABS: Basophils % (A) 1 %; Eosinophils # (A) 0.2 k/uL (0-0.7); Eosinophils % (A) 5 %; HCT 37.4 % (39.0-53.0); HGB 12.6 gm/dL (13.0-17.5); Lymphocytes # (A) 0.5 k/uL (1.0-4.8); Lymphocytes % (A) 13 %; MCHC 33.7 g/dL (31.0-37.0); MCV 97.9 fL (80.0-100.0); Mean Platelet Volume 8.1; Monocytes # (A) 0.2 k/uL (0-1.0); Monocytes % (A) 6 %; Neutrophils # (A) 2.6 k/uL (1.3-7.7); Neutrophils % (A) 73 %; Platelet Count 136 k/uL (150-450); RBC 3.82 m/uL (4.30-5.90); RDW 12.4 % (11.5-15.5); WBC 3.5 k/uL (3.8-10.6)
[2018-11-06 07:06] LABS: Potassium 4.7 mmol/L (3.5-5.1)
--- NOTE | 2018-11-06 07:17 | PN ---
PROGRESS NOTE Mr. Gaspar is an 82-year-old male with known history of coronary artery disease status post coronary artery bypass grafting, history of hypertension, hyperlipidemia, who presented with progressive dyspnea and abnormal myocardial perfusion imaging, underwent cardiac catheterization, was found to have significant obstructive disease in the obtuse marginal branch, underwent successful stenting of that vessel. He is doing well this morning. He is denying any chest pain. His breathing has been stable. He denies any dizziness or palpitation. He denies any nausea. Hemodynamically, he is stable. He continues to be in sinus mechanism. He continues to be at this time on aspirin once a day, Plavix 75 mg daily, Lipitor 20 mg daily, metoprolol tartrate 50 mg twice a day. PHYSICAL EXAMINATION: Blood pressure 130/60 with the heart rate in the 60s. LUNGS: Clear. HEART: Regular rate and rhythm. S1, S2. No S3. No rub. ABDOMEN: Soft, nontender. EXTREMITIES: No edema. RIGHT GROIN: No hematoma. LAB DATA: Lab data revealed hemoglobin of 12.6. IMPRESSION: 1. Status post stenting of the left circumflex obtuse marginal branch. 2. Status post coronary artery bypass grafting with patent KUMAR to LAD and patent saphenous vein graft to the right coronary artery. 3. Hypertension. 4. Hyperlipidemia. 5. Diabetes mellitus. RECOMMENDATION: Patient should be able to be discharged home today and followed as an outpatient in one week. ZACHERY / STEVEN: [id number] /
[2018-11-06 07:52] VITALS: BP 163/74; PULSE 65; RESP 20; TEMP 97.4
[2018-11-06] MEDS: METOPROLOL TARTRATE 50 MG TAB PO SCH (07:55)
[2018-11-06] MEDS: ASPIRIN 81 MG PO SCH (07:56)
[2018-11-06] MEDS: CHOLECALCIFEROL 1,000 UNIT TAB PO SCH (07:56)
[2018-11-06] MEDS: ATORVASTATIN 20 MG TAB PO SCH (07:56)
[2018-11-06] MEDS: MULTIVITAMINS, THERA 1 EACH TAB PO SCH (07:56)
[2018-11-06] MEDS ORDERED: CLOPIDOGREL 75 MG TAB PO SCH (09:00)
== END 2018-11-06 08:52 | disposition home or self-care (01) ==
LOC: CATHCVL 05:57 → 3SCARD 10:23 → CATHCVL 11-06 08:52
PROVIDERS: ATTEND Internal Medicine Interventional Cardiology
DX: I25.10 Atherosclerotic heart disease of native coronary artery without angina pectoris (principal); I25.82 Chronic total occlusion of coronary artery; Z95.1 Presence of aortocoronary bypass graft; Z95.5 Presence of coronary angioplasty implant and graft; Z82.49 Family history of ischemic heart disease and other diseases of the circulatory system; I25.5 Ischemic cardiomyopathy; I12.9 Hypertensive chronic kidney disease with stage 1 through stage 4 chronic kidney disease, or unspecified chronic kidney disease; E11.22 Type 2 diabetes mellitus with diabetic chronic kidney disease; N18.9 Chronic kidney disease, unspecified; E78.2 Mixed hyperlipidemia; F17.210 Nicotine dependence, cigarettes, uncomplicated; Z79.82 Long term (current) use of aspirin; Z79.899 Other long term (current) drug therapy
CPT/HCPCS: 93459; 85347; 80048; 85025; C9600; C1769 ×4; C1887; C1725; C1894; C1874; J2001; J3010; J0583; Q9967; 93458

== ENCOUNTER 2020-04-06 06:01 | Day surgery (SDC) | payer MEDICARE ==
[2020-04-02 14:45] VITALS: BMI 29.9
[2020-04-06] MEDS ORDERED: NITROGLYCERIN SL TABS 0.4 MG TAB SUBLINGUAL PRN ×2 (06:05→09:06)
[2020-04-06] MEDS ORDERED: ALPRAZolam 0.5 MG TAB PO PRN (06:05)
[2020-04-06] MEDS ORDERED: SODIUM CHLORIDE 0.9% 1,000 ML in EMPTY BAG 1 BAG IV ONE (06:05)
[2020-04-06] MEDS ORDERED: ALPRAZolam 0.25 MG TAB PO PRN (06:05)
[2020-04-06] MEDS ORDERED: SODIUM CHLORIDE 0.9% 1,000 ML IV ONE (06:35)
[2020-04-06] MEDS ORDERED: ASPIRIN 325 MG TAB PO ONE (07:00)
[2020-04-06] MEDS ORDERED: ATORVASTATIN 80 MG TAB PO ONE (07:00)
[2020-04-06] MEDS ORDERED: VERAPAMIL 2.5 MG/ML 2 ML AMP ONE (07:12)
[2020-04-06] MEDS ORDERED: HEPARIN SODIUM 1,000 UN/ML (10ML VL) ONE ×2 (07:12→07:56)
[2020-04-06] MEDS ORDERED: LIDOCAINE 1% INJ 10MG/ML (20 ML MDV) ONE ×2 (07:12→07:41)
[2020-04-06] MEDS ORDERED: fentaNYL (PF) 50 MCG/ML 2 ML AMP ONE (07:12)
[2020-04-06] MEDS ORDERED: fentaNYL (PF) 50 MCG/ML 2 ML AMP IV ONE (07:36)
[2020-04-06] MEDS ORDERED: LIDOCAINE 1% INJ 10MG/ML (20 ML MDV) SQ ONE ×2 (07:39→07:42)
[2020-04-06] MEDS ORDERED: CLOPIDOGREL 75 MG TAB ONE (07:56)
[2020-04-06] MEDS: HEPARIN SODIUM 1,000 UN/ML (10ML VL) IV ONE ×2 (07:57→08:23)
[2020-04-06] MEDS ORDERED: CLOPIDOGREL 75 MG TAB PO ONE (08:02)
[2020-04-06] MEDS ORDERED: IOPAMIDOL-370 125ML BTL INJ ONE (08:22)
[2020-04-06] MEDS ORDERED: NITROGLYCERIN 1000MCG/10ML SYRINGE INTRACORON ONE (08:25)
[2020-04-06] MEDS ORDERED: IOPAMIDOL-370 100ML BTL INJ ONE (08:46)
[2020-04-06] MEDS: SODIUM CHLORIDE 0.9% 1,000 ML IV SCH ×2 (09:00→20:19)
[2020-04-06] MEDS ORDERED: ZOLPIDEM 5 MG TAB PO PRN (09:06)
[2020-04-06] MEDS ORDERED: ATROPINE SULFATE 0.1 MG/ML 10ML SYRINGE IV PRN (09:06)
[2020-04-06] MEDS ORDERED: RX INFO: IV CONTRAST WAS GIVEN 1 EACH MISC MISCELLANE PRN (09:06)
[2020-04-06] MEDS ORDERED: CYCLOBENZAPRINE 5 MG TAB PO PRN (09:07)
[2020-04-06] MEDS ORDERED: SODIUM CHLORIDE 0.9% 1,000 ML IV SCH (09:15)
--- NOTE | 2020-04-06 10:01 | CC ---
CARDIAC CATHETERIZATION REPORT Mr. Gaspar is an 84-year-old male with known history of coronary artery disease, status post bypass grafting in 2010 and subsequent percutaneous revascularization in 2010 and most recently in 2019 who presented with symptoms of progressive dyspnea on exertion, reminding him of his symptoms prior to percutaneous revascularization. He was treated medically, but continued to have symptoms. In view of that, recommendation made regarding cardiac catheterization. The procedures, risks, and complications were discussed with the patient who is in full understanding and agreement. PROCEDURE: Patient was brought to brine room laborer in a fasting semi-sedated state after receiving fentanyl and Benadryl and achieving moderate conscious sedated state. Using Xylocaine anesthesia and Seldinger technique, a 6-Nigerien sheath was introduced in the right femoral artery, Selective left coronary angiography performed 6-Nigerien 4 bend, left José Miguel catheter. The 6-Nigerien 4 bend left José Miguel was used to cannulate the saphenous vein graft to the obtuse marginal branch. Multiple images of the artery and the graft were obtained. Following that, catheter removed, images were reviewed. FINDINGS: FLUOROSCOPY: There was calcification involving the left anterior descending artery and the left main. LEFT MAIN: This is a large-sized vessel, bifurcating into left circumflex, left anterior descending artery. Left main coronary artery has a 10% to 20% plaque distally. LEFT ANTERIOR DESCENDING ARTERY: This vessel is subtotally occluded proximally with minimal antegrade flow. There is competitive flow through the KUMAR, back-feeding the LAD. LEFT CIRCUMFLEX: This vessel is totally occluded proximally with no antegrade flow. RIGHT CORONARY ARTERY: Images were not obtained in this procedure, but it is known to be chronically occluded. SAPHENOUS VEIN GRAFT TO THE RIGHT CORONARY ARTERY: The proximal distal anastomotic sites are patent. The stented segment and proximal graft are patent. There is mild disease in the body of the graft. There is retrograde feeling in the proximal LAD and collateral from the right coronary artery toward the obtuse marginal branch. LEFT VENTRICULOGRAM: Left ventriculogram was not performed. CONCLUSION: 1. Chronic occluded right coronary artery and LAD. 2. Patent saphenous vein graft to the right coronary artery. 3. Suggestion of patent KUMAR to the LAD. 4. Totally occluded proximal left circumflex, which is new since October of 2018. RECOMMENDATION: In view of the finding anatomy, I recommend proceed with attempt to recanalize the left circumflex. The procedures risks and complication were discussed with the patient, who is in full understanding and agreement. ZACHERY / ARLETN: [id number] /
--- NOTE | 2020-04-06 10:07 | LTR ---
DATE OF SERVICE: 04/06/2020 RE: Pillo Gaspar Dear Dr. Suh; I had the pleasure to perform coronary angioplasty and stenting on Mr. Gaspar at [facility] on April 06, 2020. A full copy of the procedure note will be forwarded to you. In brief, he underwent successful stenting of his chronically occluded left circumflex. I am hopeful that this procedure will stabilize his status. Thank you again for allowing me to participate in this patient's care. Please feel free to call for any questions. Sincerely yours, MD DIANE CunninghamL / IJN: [id number] /
--- NOTE | 2020-04-06 10:07 | PTCA ---
PERCUTANEOUSTRANS CORORONARY ANGIOGRAPHY Mr. Gaspar is an 84-year-old male with a known history of coronary artery disease who presented with progressive dyspnea on exertion, underwent cardiac catheterization, was found to have a totally occluded proximal left circumflex, which is new compared to the images in October of 2018. In view of that, recommendation regarding angioplasty and stenting, the procedures, risks, and complication were discussed. The patient was in full understanding and agreement. PROCEDURE: A 6-Australian LBU 3.75 guiding catheter introduced into the system, after cannulating the left main, a 0.014 balanced medium weight J-wire with a straight a super cross microcatheter were advanced. The wire would not advance across the total occlusion. That wire was removed and a 0.014 whisper J-wire was advanced and the wire would cross the total occlusion. Subsequently, the microcatheter was advanced across the lesion, positioned distal obtuse marginal branch and the wire was exchanged to a 0.014 balanced medium weight J-wire and after removing the microcatheter, a 2.0 x 12 mm Trek balloon was advanced and two inflations at 10 atmospheres were done. Following that, the balloon was removed and a 2.5 x 12 mm NC Trek balloon was advanced and two inflations at 12 atmospheres were done. Following that, the balloon was removed and a 3.25 x 23 mm Xience Rose Marie stent was advanced, deployed and post dilated at 16 atmospheres at 16 atmospheres. Following that, the balloon was removed and a 3.5 x 15 mm NC Emerge balloon was advanced and two inflations were done at maximum of 14 atmospheres. After the last inflation, after appropriate wait, the balloon and the guidewire were withdrawn back in the guiding catheter. Images were obtained and repeated. Those images reveal stable successful stenting. At that point, the guiding catheter, the balloon and the guidewire were removed. The sheath was removed, hemostasis was obtained with deployment of an Angio-Seal. There was no immediate complication. Patient is returned to his room in stable condition. Of note, the patient received a total of 9000 of intravenous heparin and oral loading dose of clopidogrel, his HCT was monitored. He had no chest discomfort or significant EKG changes with the inflations. RESULTS: Successful angioplasty and stenting of a totally occluded left circumflex with reduction of stenosis from 100% to 0%. RECOMMENDATION: Patient to be continued on aspirin, Plavix and statin. The importance of dual antiplatelet treatment were discussed with the patient and his family and they are in full understanding and agreement. Duration of the sedation is 70 minutes. MMBLAYNEL / ARLETN: [id number] /
[2020-04-06 14:26] VITALS: TEMP 97.4
[2020-04-06] MEDS ORDERED: hydrALAZINE HCL 20 MG/ML 1 ML VIAL IVP STA (17:40)
[2020-04-06] MEDS: METOPROLOL TARTRATE 50 MG TAB PO SCH (18:52)
[2020-04-06] MEDS: ATORVASTATIN 40 MG TAB PO SCH ×2 (20:17→20:19)
[2020-04-06] MEDS: MAG HYDROX/AL HYDROX/SIMETH 30 ML CUP PO PRN (22:00)
[2020-04-07] MEDS: MAG HYDROX/AL HYDROX/SIMETH 30 ML CUP PO PRN ×2 (04:58→08:40)
[2020-04-07 08:01] LABS: Calcium 9.7 mg/dL (8.4-10.2); Potassium 4.8 mmol/L (3.5-5.1)
[2020-04-07 08:37] VITALS: BP 143/74; PULSE 75; RESP 14
[2020-04-07] MEDS: METOPROLOL TARTRATE 50 MG TAB PO SCH (08:40)
[2020-04-07] MEDS ORDERED: CLOPIDOGREL 75 MG TAB PO SCH (09:00)
[2020-04-07] MEDS ORDERED: ASPIRIN 81 MG PO SCH (09:00)
--- NOTE | 2020-04-07 09:30 | PN ---
PROGRESS NOTE Mr. Gaspar is an 84-year-old male with known history of coronary artery disease, who presented with progressive symptoms of dyspnea on exertion, consistent with his angina pectoris, underwent cardiac catheterization, was found to have chronically occluded proximal left circumflex. He underwent successful stenting of that vessel. He is doing well this morning. He denies any chest pain. He is breathing stable. He denies any dizziness, palpitation. He denies any nausea. He continues on aspirin once a day, Lipitor 40 mg daily, Plavix 75 mg daily, metoprolol tartrate 50 mg twice a day. PHYSICAL EXAMINATION: Blood pressure 124/70 with a heart rate in the 60s. LUNGS: Clear, regular rate and rhythm. HEART: S1, S2. No S3. No rub. ABDOMEN: Soft, nontender. EXTREMITIES: No edema. Right groin no hematoma. Mild ecchymosis. During the night of his blood pressure was elevated, it is under better control at this time. EKG revealed no acute changes. LAB DATA: Pending. IMPRESSION: 1. Status post stenting of the left circumflex. 2. Status post coronary artery bypass grafting. 3. Hypertension. 4. Hyperlipidemia. 5. Chronic kidney disease. RECOMMENDATION: Patient should be able to be discharged home today and followed as an outpatient. MMODL / IJN: [id number] /
== END 2020-04-07 10:25 | disposition home or self-care (01) ==
LOC: CATHCVL 06:01 → 1SOBS 08:48 → CATHCVL 04-07 10:25
PROVIDERS: ATTEND Internal Medicine Interventional Cardiology
DX: I25.110 Atherosclerotic heart disease of native coronary artery with unstable angina pectoris (principal); I25.82 Chronic total occlusion of coronary artery; I25.5 Ischemic cardiomyopathy; I12.9 Hypertensive chronic kidney disease with stage 1 through stage 4 chronic kidney disease, or unspecified chronic kidney disease; N18.9 Chronic kidney disease, unspecified; F17.210 Nicotine dependence, cigarettes, uncomplicated; E78.2 Mixed hyperlipidemia; Z95.1 Presence of aortocoronary bypass graft; Z95.5 Presence of coronary angioplasty implant and graft; Z79.82 Long term (current) use of aspirin; Z79.899 Other long term (current) drug therapy; Z82.49 Family history of ischemic heart disease and other diseases of the circulatory system
CPT/HCPCS: 93455; 85347; 80048; C9607; C1769 ×3; C1760; C1887 ×3; C1725 ×3; C1894; C1874; J0360; J2001; J3010; J1644; Q9967 ×2

== ENCOUNTER 2020-12-03 17:46 | Observation (INO) | payer MEDICARE ==
--- NOTE | 2020-12-03 18:35 | ED ---
Chest Pain HPI - General Chief Complaint: Chest Pain Stated Complaint: CHEST PAIN Source: patient Mode of arrival: ambulatory - History of Present Illness Initial Comments: 84-year-old male with past history of coronary artery disease status post CABG, PCI post CABG who presents emergency Department with reported chest pain. Patient reports that he began having a chest pressure yesterday. He felt as if he was bound up and therefore took an enema. He reports having a bowel movement which alleviated his abdominal pain however he continues to have chest pain. States he has nitro at home however did not take any. She denies fevers, chills or cough. Admits to shortness of breath. No nausea or vomiting. Admits to abdominal distention however no pain. Patient sees Dr. Jasso in office. No ot her alleviating, Percepting or modifying factors - Related Data Home Medications Medication Instructions Recorded Confirmed Cholecalciferol [Vitamin D3 (25 1,000 unit PO DAILY 02/26/17 12/03/20 Mcg = 1000 Iu)] Metoprolol Tartrate [Lopressor] 50 mg PO BID 02/26/17 12/03/20 Aspirin [Adult Low Dose Aspirin EC] 81 mg PO DAILY 10/28/18 12/03/20 Atorvastatin [Lipitor] 40 mg PO HS 04/02/20 12/03/20 Naproxen [Naprosyn] 500 mg PO BID 04/02/20 12/03/20 EPINEPHrine (Auto Inject) [Epipen] 0.3 mg IM ONCE PRN 12/03/20 12/03/20 Previous Rx's Medication Instructions Recorded Nitroglycerin Sl Tabs [Nitrostat] 0.4 mg SUBLINGUAL Q5M PRN #25 tab 11/06/18 Clopidogrel [Plavix] 75 mg PO DAILY #90 tab 04/07/20 Allergies Allergy/AdvReac Type Severity Reaction Status Date / Time No Known Allergies Allergy Verified 12/03/20 20:06 Review of Systems ROS Statement: Those systems with pertinent positive or pertinent negative responses have been documented in the HPI. ROS Other: All systems not noted in ROS Statement are negative. EKG Findings - EKG Comments: EKG Findings:: EKG demonstrates a sinus rhythm with a first-degree AV block. Rate of 61. General 306. QRS 86. QTC 388. No acute ST segment elevations or depressions. Repeat EKG is performed at 1907 which demonstrates a normal sinus rhythm with a ventricular rate 64. PA interval 292. QRS 84. QTC are 394. No acute ST segment elevation or depressions concerning for ischemic changes Past Medical History Past Medical History: Coronary Artery Disease (CAD), Eye Disorder, GERD/Reflux, Osteoarthritis (OA), Prostate Disorder Additional Past Medical History / Comment(s): CURRENT: SOB. KIDNEY LABS CONTINUE TO BE ELEVATED. Legally blind. 11/05 stent to circ History of Any Multi-Drug Resistant Organisms: None Reported Past Surgical History: Coronary Bypass/CABG, Heart Catheterization With Stent, Tonsillectomy Additional Past Surgical History / Comment(s): 3 cardiac stents, CABG 2009, ROMULO knee replacementS. Romulo cataracts, prostate surgery-urolift Past Anesthesia/Blood Transfusion Reactions: No Reported Reaction Additional Past Anesthesia/Blood Transfusion Reaction / Comment(s): ced sick ness as child, Date of Last Stent Placement:: 10/2018 Past Psychological History: No Psychological Hx Reported Smoking Status: Former smoker Past Alcohol Use History: Occasional Past Drug Use History: None Reported - Past Family History Mother Family Medical History: No Reported History Course Vital Signs 12/03/20 12/03/20 12/03/20 17:50 18:45 19:15 Temperature 98.1 F Pulse Rate 64 63 Pulse Rate [ 63 Claims Adjustor ] Respiratory 18 16 Rate Blood Pressure 171/84 183/91 O2 Sat by Pulse 98 100 Oximetry Chest Pain MDM - MDM Upon arrival patient was placed into room 1. A thorough history of physical exam was performed. EKG is obtained. Laboratory studies were conducted. Patient was given 4 mg of morphine for pain control and simethicone for abdominal distention. Laboratory studies are reviewed and demonstrate a negative troponin. Chest x-ray demonstrates no acute process. I did repeat an EKG which continues to not demonstrate any ST elevation. Upon return results I did discuss with the patient. Patient is given a full dose aspirin. Recommended hospitalization for patient did agree to. Spoke with Dr. Ward who agreed to admit the patient. He was taken to the floor in stable condition Disposition Clinical Impression: Chest pain Disposition: ADMITTED IP TO THIS HOSP Condition: Stable Is patient prescribed a controlled substance at d/c from ED?: No Decision to Admit Reason: Admit from EC Decision Date: 12/03/20 Decision Time: 19:46
[2020-12-03 18:38] LABS: Basophils % (A) 1 %; Eosinophils # (A) 0.1 k/uL (0-0.7); Eosinophils % (A) 2 %; HCT 43.4 % (39.0-53.0); HGB 14.6 gm/dL (13.0-17.5); Lymphocytes % (A) 21 %; MCH 33.7 pg (25.0-35.0); MCHC 33.7 g/dL (31.0-37.0); MCV 99.8 fL (80.0-100.0); Mean Platelet Volume 9.5; Monocytes # (A) 0.4 k/uL (0-1.0); Monocytes % (A) 8 %; Neutrophils # (A) 3.2 k/uL (1.3-7.7); Neutrophils % (A) 67 %; Platelet Count 173 k/uL (150-450); RBC 4.35 m/uL (4.30-5.90); RDW 12.3 % (11.5-15.5); WBC 4.8 k/uL (3.8-10.6)
[2020-12-03] MEDS ORDERED: SIMETHICONE 80 MG CHEWABLE PO STA (18:44)
[2020-12-03] MEDS ORDERED: MORPHINE SULFATE 4 MG/ML SYRINGE IVP STA (18:44)
[2020-12-03 18:47] LABS: Albumin 4.1 g/dL (3.5-5.0); Calcium 10.2 mg/dL (8.4-10.2); Magnesium 2.4 mg/dL (1.6-2.3); Potassium 4.6 mmol/L (3.5-5.1); Total Bilirubin 0.6 mg/dL (0.2-1.3); Total Protein 6.7 g/dL (6.3-8.2)
[2020-12-03 18:59] LABS: INR 0.9 (<1.2); Partial Thromboplastin Time 23.7 sec (22.0-30.0); Prothrombin Time 10.2 sec (9.0-12.0)
--- NOTE | 2020-12-03 19:02 | XR ---
EXAMINATION TYPE: XR abdomen 2V DATE OF EXAM: 12/03/2020 COMPARISON: NONE HISTORY: Abdominal distention TECHNIQUE: Supine and upright views FINDINGS: There is no evidence of intestinal obstruction or pneumoperitoneum. Fecal pattern is normal . Lung bases are clear. There are no pathologic calcifications over the kidneys. There are spondyloti c changes in the lower lumbar spine. There clips at the prostate. Bony structures are intact. IMPRESSION: Nonacute abdomen.
--- NOTE | 2020-12-03 19:04 | XR ---
EXAMINATION TYPE: XR chest 2V DATE OF EXAM: 12/03/2020 COMPARISON: 03/07/2017 HISTORY: Chest pain TECHNIQUE: 2 views FINDINGS: There is no heart failure nor confluent pneumonic infiltrate. Costophrenic angles are clear . Thoracic aorta is atheromatous. There are sternal wires. There are chest leads. Bony thorax is intact. IMPRESSION: No active cardiopulmonary disease. Normal heart. No change.
[2020-12-03] MEDS ORDERED: NALOXONE 0.4 MG/ML 1 ML VIAL IV PRN (19:46)
[2020-12-03] MEDS ORDERED: ASPIRIN 81 MG PO STA (19:52)
[2020-12-03] MEDS: METOPROLOL TARTRATE 50 MG TAB PO SCH (23:34)
[2020-12-04] MEDS: SIMETHICONE 80 MG CHEWABLE PO PRN ×2 (08:43→20:00)
[2020-12-04] MEDS ORDERED: NAPROXEN 250 MG TAB PO SCH (09:00)
[2020-12-04] MEDS: CLOPIDOGREL 75 MG TAB PO SCH (09:03)
[2020-12-04] MEDS: METOPROLOL TARTRATE 50 MG TAB PO SCH ×2 (09:03→19:50)
[2020-12-04] MEDS: CHOLECALCIFEROL 25 MCG (1000 IU) TABLET PO SCH (09:03)
[2020-12-04] MEDS: ASPIRIN 81 MG PO SCH (09:03)
[2020-12-04] MEDS: PANTOPRAZOLE 40 MG TABLET PO SCH (09:03)
[2020-12-04 09:18] LABS: Basophils # (A) 0.04 X 10*3/uL (0.00-0.10); Basophils % (A) 0.8 %; Eosinophils # (A) 0.14 X 10*3/uL (0.04-0.35); Eosinophils % (A) 2.8 %; HCT 40.1 % (39.6-50.0); Lymphocytes # (A) 1.05 X 10*3/uL (0.90-5.00); Lymphocytes % (A) 20.9 %; MCH 33.5 pg (27.0-32.0); MCHC 32.4 g/dL (32.0-37.0); MCV 103.4 fL (80.0-97.0); Mean Platelet Volume 12.1 fL (9.5-12.2); Monocytes # (A) 0.49 X 10*3/uL (0.20-1.00); Monocytes % (A) 9.7 %; Neutrophils % (A) 65.6 %; Platelet Count 152 X 10*3/uL (140-440); RBC 3.88 X 10*6/uL (4.40-5.60); WBC 5.03 X 10*3/uL (4.50-10.00)
[2020-12-04 10:05] LABS: African American GFR (CKD) 34.7 (60.0-200.0); Anion Gap 5.4 mmol/L (4.00-12.00); Calcium 9.4 mg/dL (8.7-10.3); Carbon Dioxide 31.6 mmol/L (21.6-31.8); Potassium 4.3 mmol/L (3.5-5.5)
--- NOTE | 2020-12-04 11:59 | P.CRDCN ---
History of Present Illness Consult date: 12/04/20 History of present illness: HISTORY OF PRESENT ILLNESS: This is a 84-year-old male with a past medical history significant for very disease with previous CABG 5 and stenting 4, hypertension, hyperlipidemia, and osteoarthritis. Patient follows in the office with Dr. Jasso. We have been asked to see the patient in consultation for chest pain. Patient examined at the bedside. Patient reports having chest pain in the middle of his chest yeste rday. He denied any radiation of the pain. He also reports increased abdominal bloating and gas. He states this has been going on for the past 4 days but it has gotten worse yesterday. He states it may have been GI related so he was taking Pepto at home which helped for a little while and then his symptoms would return. He denies any shortness of breath at this time. He states with his previous stenting he always has felt short of breath and didn't have much chest pain which this time felt different than his previous stents. Patient does report a history of osteoarthritis and has been taking naproxen daily. He reports about a month ago he increased his dose of naproxen to 500 mg twice a day. EKG reveals sinus mechanism with no signs of acute ischemia Chest xray negative for acute process Laboratory data: WBC 5.03. Hemoglobin 13.0. Platelet count 152. Sodium 141. Potassium 4.3. BUN 30. Creatinine 2.0. Troponin negative 3. ProBNP 970. Current home cardiac medications include metoprolol tartrate 50 mg twice a day, Plavix 75 mg daily, Lipitor 40 mg daily, and aspirin 81 mg daily Patient underwent cardiac catheterization in March 2020 chronic occluded right coronary artery and LAD. Patent saphenous vein to the right coronary artery. Patent KUMAR to LAD. Totally occluded proximal left circumflex, which is new since 2019. Patient underwent stenting of the circumflex at that time. REVIEW OF SYSTEMS: At the time of my exam: CONSTITUTIONAL: Denies fever or chills. HEENT: Denies blurred vision, vision changes, or eye pain. Denies hemoptysis CARDIOVASCULAR: Denies chest pain. Denies orthopnea. Denies PND. Denies palpitations RESPIRATORY: Denies shortness of breath. GASTROINTESTINAL: Denies abdominal pain. Denies nausea or vomiting. HEMATOLOGIC: Denies bleeding disorders. GENITOURINARY: Denies any blood in urine. SKIN: Denies pruitis. Denies rash. PHYSICAL EXAM: VITAL SIGNS: Reviewed. GENERAL: Well-developed in no acute distress. HEENT: Head is normocephalic. Pupils are equal, round. Sclerae anicteric. Mucous membranes of the mouth are moist. Neck supple. No JVD or thyromegaly LUNGS: Respirations even and unlabored. Lungs essentially clear to auscultation bilaterally. HEART: Regular rate and rhythm. S1 and S2 heard. ABDOMEN: Soft. Nondistended. Nontender. EXTREMITIES: Normal range of motion. No clubbing or cyanosis. Peripheral pulses intact. No lower extremity edema NEUROLOGIC: Awake and alert. Oriented x 3. ASSESSMENT: Chest pain, atypical, with complaints of increased bloating and gas Coronary artery disease with previous CABG and PCI Hypertension Hyperlipidemia PLAN: An acute coronary event has been ruled out Obtain 2-D echo to assess cardiac structure and function Resume home cardiac medications Begin Protonix 40 mg daily Discontinue naproxen. Patient instructed to take Tylenol at home if needed but not to take NSAIDs in addition to his aspirin and Plavix Further recommendations pending patient course Nurse practitioner note has been reviewed by physician. Signing provider agrees with the documented findings, assessment, and plan of care. Past Medical History Past Medical History: Coronary Artery Disease (CAD), Eye Disorder, GERD/Reflux, Osteoarthritis (OA), Prostate Disorder Additional Past Medical History / Comment(s): CURRENT: SOB. KIDNEY LABS CONTINUE TO BE ELEVATED. Legally blind. 11/05 stent to circ History of Any Multi-Drug Resistant Organisms: None Reported Past Surgical History: Coronary Bypass/CABG, Heart Catheterization With Stent, Tonsillectomy Additional Past Surgical History / Comment(s): 3 cardiac stents, CABG 2009, ROMULO knee replacementS. Romulo cataracts, prostate surgery-urolift Past Anesthesia/Blood Transfusion Reactions: No Reported Reaction Additional Past Anesthesia/Blood Transfusion Reaction / Comment(s): motiion sickness as child, Date of Last Stent Placement:: 10/2018 Past Psychological History: No Psychological Hx Reported Smoking Status: Former smoker Past Alcohol Use History: Occasional Past Drug Use History: None Reported - Past Family History Mother Family Medical History: No Reported History Medications and Allergies Home Medications Medication Instructions Recorded Confirmed Type Cholecalciferol [Vitamin D3 (25 1,000 unit PO DAILY 02/26/17 12/03/20 History Mcg = 1000 Iu)] Metoprolol Tartrate [Lopressor] 50 mg PO BID 02/26/17 12/03/20 History Aspirin [Adult Low Dose Aspirin EC] 81 mg PO DAILY 10/28/18 12/03/20 History Nitroglycerin Sl Tabs [Nitrostat] 0.4 mg SUBLINGUAL Q5M PRN #25 tab 11/06/18 12/03/20 Rx Atorvastatin [Lipitor] 40 mg PO HS 04/02/20 12/03/20 History Naproxen [Naprosyn] 500 mg PO BID 04/02/20 12/03/20 History Clopidogrel [Plavix] 75 mg PO DAILY #90 tab 04/07/20 12/03/20 Rx EPINEPHrine (Auto Inject) [Epipen] 0.3 mg IM ONCE PRN 12/03/20 12/03/20 History Allergies Allergy/AdvReac Type Severity Reaction Status Date / Time No Known Allergies Allergy Verified 12/03/20 20:06 Physical Exam Vitals: Vital Signs Temp Pulse Pulse Resp BP BP BP 12/04/20 08:00 16 12/04/20 07:35 97.4 F L 55 L 16 184/75 12/04/20 02:55 59 L 18 12/04/20 01:50 97.7 F 59 L 18 136/70 12/03/20 20:50 97.8 F 60 17 144/72 12/03/20 19:15 63 16 183/91 12/03/20 18:45 63 12/03/20 17:50 98.1 F 64 18 171/84 Pulse Ox 12/04/20 08:00 12/04/20 07:35 97 12/04/20 02:55 12/04/20 01:50 98 12/03/20 20:50 97 12/03/20 19:15 100 12/03/20 18:45 12/03/20 17:50 98 Intake and Output 12/03/20 12/04/20 12/04/20 22:59 06:59 14:59 Intake Total 180 Balance 180 Intake: Oral 180 Other: Voiding Method Toilet Toilet # Voids 1 2 Weight 95.254 kg Results 12/04/20 05:49 12/04/20 05:49 Cardiac Enzymes 12/03/20 12/03/20 12/03/20 Range/Units 18:20 18:20 21:33 AST 24 (17-59) U/L Troponin I <0.012 <0.012 (0.000-0.034) ng/mL 12/03/20 Range/Units 23:49 AST (17-59) U/L Troponin I <0.012 (0.000-0.034) ng/mL Coagulation 12/03/20 Range/Units 18:20 PT 10.2 (9.0-12.0) sec APTT 23.7 (22.0-30.0) sec CBC 12/03/20 12/04/20 Range/Units 18:20 05:49 WBC 4.8 5.03 (3.8-10.6) k/uL RBC 4.35 3.88 L (4.30-5.90) m/uL Hgb 14.6 13.0 (13.0-17.5) gm/dL Hct 43.4 40.1 (39.0-53.0) % Plt Count 173 152 (150-450) k/uL Comprehensive Metabolic Panel 12/03/20 12/04/20 Range/Units 18:20 05:49 Sodium 139 141 (137-145) mmol/L Potassium 4.6 4.3 (3.5-5.1) mmol/L Chloride 99 104 (98-107) mmol/L Carbon Dioxide 32 H 31.6 (22-30) mmol/L BUN 29 H 30.0 H (9-20) mg/dL Creatinine 1.79 H 2.0 H (0.66-1.25) mg/dL Glucose 105 H 93 (74-99) mg/dL Calcium 10.2 9.4 (8.4-10.2) mg/dL AST 24 (17-59) U/L ALT 17 (4-49) U/L Alkaline Phosphatase 88 (38-126) U/L Total Protein 6.7 (6.3-8.2) g/dL Albumin 4.1 (3.5-5.0) g/dL Current Medications Generic Name Dose Route Start Last Admin Trade Name Freq PRN Reason Stop Dose Admin Aspirin 81 mg 12/04/20 09:00 12/04/20 09:03 Aspirin 81 Mg PO 81 mg DAILY LEANNE Administration Atorvastatin Calcium 40 mg 12/04/20 21:00 Atorvastatin 40 Mg Tab PO HS LEANNE Cholecalciferol 25 mcg 12/04/20 09:00 12/04/20 09:03 Cholecalciferol 25 Mcg (1000 Iu) Tablet PO 25 mcg DAILY LEANNE Administration Clopidogrel Bisulfate 75 mg 12/04/20 09:00 12/04/20 09:03 Clopidogrel 75 Mg Tab PO 75 mg DAILY LEANNE Administration Metoprolol Tartrate 50 mg 12/03/20 23:15 12/04/20 09:03 Metoprolol Tartrate 50 Mg Tab PO 50 mg BID LEANNE Administration Naloxone HCl 0.2 mg 12/03/20 19:46 Naloxone 0.4 Mg/Ml 1 Ml Vial IV Q2M PRN Opioid Reversal Pantoprazole Sodium 40 mg 12/04/20 08:45 12/04/20 09:03 Pantoprazole 40 Mg Tablet PO 40 mg AC-BRKFST LEANNE Administration Simethicone 160 mg 12/04/20 08:32 12/04/20 08:43 Simethicone 80 Mg Chewable PO 160 mg TID PRN Administration GI Upset Intake and Output 12/03/20 12/04/20 12/04/20 22:59 06:59 14:59 Intake Total 180 Balance 180 Intake: Oral 180 Other: Voiding Method Toilet Toilet # Voids 1 2 Weight 95.254 kg 12/04/20 05:49 12/04/20 05:49
--- NOTE | 2020-12-04 12:19 | P.DS ---
Providers Date of admission: 12/03/20 19:46 Attending physician: Devika Garcia MD Consults: 12/03/20 19:49 Consult Physician Urgent Consulting Provider: [facility] Consult Reason/Comments: acute chest pain possible acs Do you want consulting provider notified?: Yes Primary care physician: Lucinda Evans [facility] Course: Patient is a pleasant 84-year-old male with a history of coronary artery bypass grafting in the past and multiple stents in the past came in with complaints of nonexertional chest pain under the left chest area, not related to food was sitting at the table. Patient pain is nonpruritic completely resolved at this time patient pain is moderate severe has been going on for 4 days felt he has increased of bloating and gas. Patient does have history of osteoporosis for which patient takes naproxen. Patient was constipated for about 3-4 days for which patient took multiple medications which didn't help uncle he took Dulcolax. Patient's symptoms improved with the simethicone. Patient had an EKG which did not show any acute ST-T wave changes chest x-ray did not show any significant abnormality. Patient had a cardiac catheterization in March 2020 which showed occluded right coronary artery for which she had stenting. REVIEW OF SYSTEMS: CONSTITUTIONAL: No fever, no malaise, no fatigue. HEENT: No recent visual problems or hearing problems. Denied any sore throat. CARDIOVASCULAR: No orthopnea, PND, no palpitations, no syncope. PULMONARY: No shortness of breath, no cough, no hemoptysis. GASTROINTESTINAL: No diarrhea, no nausea, no vomiting, no abdominal pain. NEUROLOGICAL: No headaches, no weakness, no numbness. HEMATOLOGICAL: Denies any bleeding or petechiae. GENITOURINARY: Denies any burning micturition, frequency, or urgency. MUSCULOSKELETAL/RHEUMATOLOGICAL: Denies any joint pain, swelling, or any muscle pain. ENDOCRINE: Denies any polyuria or polydipsia. The rest of the 14-point review of systems is negative. PHYSICAL EXAMINATION: GENERAL: The patient is alert and oriented x3, not in any acute distress. Well developed, well nourished. HEENT: Pupils are round and equally reacting to light. EOMI. No scleral icterus. No conjunctival pallor. Normocephalic, atraumatic. No pharyngeal erythema. No thyromegaly. CARDIOVASCULAR: S1 and S2 present. No murmurs, rubs, or gallops. PULMONARY: Chest is clear to auscultation, no wheezing or crackles. ABDOMEN: Soft, nontender, nondistended, normoactive bowel sounds. No palpable organomegaly. MUSCULOSKELETAL: No joint swelling or deformity. EXTREMITIES: No cyanosis, clubbing, or pedal edema. NEUROLOGICAL: Gross neurological examination did not reveal any focal deficits. SKIN: No rashes. Assessment and plan -Chest pain atypical he appears to be mostly GI upset and probable gastritis patient will be given a Prilosec for 14 days patient will follow with Dr. Jasso as an outpatient. Patient was a valid by cardiology initially they wanted to monitor the patient overnight and obtain echocardiogram echocardiac was obtained results are pending at patient prefers to go home because of which I discussed with cardiology and after the echocardiac exam patient will be discharged. Carotid artery disease with CABG in the past and the multiple stents in the past next and have her gases. 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 Patient Baseline creatinine appears to be around 1.6-1.7 Patient Condition at Discharge: Stable Plan - Discharge Summary Discharge Rx Participant: No New Discharge Prescriptions: New Omeprazole [PriLOSEC] 40 mg PO -BRKFST #14 capsule. Acetaminophen [Tylenol Arthritis] 650 mg PO Q6HR PRN #30 tab PRN Reason: Pain Discontinued Naproxen [Naprosyn] 500 mg PO BID No Action Metoprolol Tartrate [Lopressor] 50 mg PO BID Cholecalciferol [Vitamin D3 (25 Mcg = 1000 Iu)] 1,000 unit PO DAILY Aspirin [Adult Low Dose Aspirin EC] 81 mg PO DAILY Nitroglycerin Sl Tabs [Nitrostat] 0.4 mg SUBLINGUAL Q5M PRN #25 tab PRN Reason: Chest Pain Atorvastatin [Lipitor] 40 mg PO HS Clopidogrel [Plavix] 75 mg PO DAILY #90 tab EPINEPHrine (Auto Inject) [Epipen] 0.3 mg IM ONCE PRN PRN Reason: Anaphylaxis Discharge Medication List Cholecalciferol [Vitamin D3 (25 Mcg = 1000 Iu)] 1,000 unit PO DAILY 02/26/17 [History] Metoprolol Tartrate [Lopressor] 50 mg PO BID 02/26/17 [History] Aspirin [Adult Low Dose Aspirin EC] 81 mg PO DAILY 10/28/18 [History] Nitroglycerin Sl Tabs [Nitrostat] 0.4 mg SUBLINGUAL Q5M PRN #25 tab 11/06/18 [Rx] Atorvastatin [Lipitor] 40 mg PO HS 04/02/20 [History] Clopidogrel [Plavix] 75 mg PO DAILY #90 tab 04/07/20 [Rx] EPINEPHrine (Auto Inject) [Epipen] 0.3 mg IM ONCE PRN 12/03/20 [History] Acetaminophen [Tylenol Arthritis] 650 mg PO Q6HR PRN #30 tab 12/04/20 [Rx] Omeprazole [PriLOSEC] 40 mg PO AC-RAMILAKFST #14 capsule. 12/04/20 [Rx] Follow up Appointment(s)/Referral(s): Lucinda Suh III, MD [Primary Care Provider] - 3 Days
--- NOTE | 2020-12-04 15:01 | ECHOF ---
Referral Reason:LV function MEASUREMENTS -------- HEIGHT: 170.2 cm WEIGHT: 95.3 kg BP: RVIDd: 2.1 cm (< 3.3) IVSd: 1.0 cm (0.6 - 1.1) LVIDd: 4.6 cm (3.9 - 5.3) LVPWd: 1.1 cm (0.6 - 1.1) IVSs: 1.7 cm LVIDs: 3.5 cm LVPWs: 1.3 cm LA Diam: 4.3 cm (2.7 - 3.8) Ao Diam: 3.0 cm (2.0 - 3.7) AV Cusp: 1.2 cm (1.5 - 2.6) LA Diam: 4.9 cm (2.7 - 3.8) MV EXCURSION: 18.048 mm (> 18.000) MV EF SLOPE: 74 mm/s (70 - 150) EPSS: 0.9 cm MV E Gerry: 0.69 m/s MV DecT: 223 ms MV A Gerry: 0.86 m/s MV E/A Ratio: 0.80 AR PHT: 1197 ms RAP: 5.00 mmHg RVSP: 12.02 mmHg FINDINGS -------- Sinus rhythm. This was a technically good study. LV size, wall thickness and systolic function are normal, with an EF greater than 55%. The left daron tricular size is normal. The right ventricle is normal in size. The left atrium is moderately dilated. The right atrial size is normal. There is mild aortic regurgitation. Mild mitral annular calcification present. Mild mitral regurgitation is present. Mild tricuspid regurgitation present. Right ventricular systolic pressure is normal at < 35 mmHg. There is no pulmonic regurgitation present. There is no pericardial effusion. CONCLUSIONS -------- 1. LV size, wall thickness and systolic function are normal, with an EF greater than 55%. 2. The left ventricular size is normal. 3. The right ventricle is normal in size. 4. The left atrium is moderately dilated. 5. The right atrial size is normal. 6. There is mild aortic regurgitation. 7. Mild mitral annular calcification present. 8. Mild tricuspid regurgitation present. 9. There is no pericardial effusion. [employer]SE MANAGER: Latanya Rosado RDCS
[2020-12-04] MEDS ORDERED: MELATONIN 3 MG TABLET PO SCH (21:00)
[2020-12-04] MEDS ORDERED: ATORVASTATIN 40 MG TAB PO SCH (21:00)
[2020-12-05] MEDS: PANTOPRAZOLE 40 MG TABLET PO SCH (06:58)
[2020-12-05 07:29] VITALS: BP 161/77; PULSE 51; RESP 18; TEMP 97.5
[2020-12-05] MEDS: METOPROLOL TARTRATE 50 MG TAB PO SCH (07:44)
[2020-12-05] MEDS: CHOLECALCIFEROL 25 MCG (1000 IU) TABLET PO SCH (07:44)
[2020-12-05] MEDS: ASPIRIN 81 MG PO SCH (07:44)
[2020-12-05] MEDS: CLOPIDOGREL 75 MG TAB PO SCH (07:44)
--- NOTE | 2020-12-05 11:36 | P.DS ---
Providers Date of admission: 12/03/20 19:46 Expected date of discharge: 12/05/20 Attending physician: Devika Garcia MD Consults: 12/03/20 19:49 Consult Physician Urgent Consulting Provider: [facility] Consult Reason/Comments: acute chest pain possible acs Do you want consulting provider notified?: Yes Primary care physician: [facility] Course: Patient is a pleasant 84-year-old male with a history of coronary artery bypass grafting in the past and multiple stents in the past came in with complaints of nonexertional chest pain under the left chest area, not related to food was sitting at the table. Patient pain is nonpruritic completely resolved at this time patient pain is moderate severe has been going on for 4 days felt he has increased of bloating and gas. Patient does have history of osteoporosis for which patient takes naproxen. Patient was constipated for about 3-4 days for which patient took multiple medications which didn't help uncle he took Dulcolax. Patient's symptoms improved with the simethicone. Patient had an EKG which did not show any acute ST-T wave changes chest x-ray did not show any significant abnormality. Patient had a cardiac catheterization in March 2020 which showed occluded right coronary artery for which she had stenting. 12/05/2020 Patient seen on follow-up, clinically has no complaints at this time. He is kept overnight for monitoring, vital signs remained stable he is not complaining of any chest pain. 2-D echocardiogram showing preserved LVEF 50-55%. He has been started on PPI which she'll continue at time of discharge. REVIEW OF SYSTEMS: HEENT: No recent visual problems or hearing problems. Denied any sore throat. CARDIOVASCULAR: No orthopnea, PND, no palpitations, no syncope. PULMONARY: No shortness of breath, no cough, no hemoptysis. GASTROINTESTINAL: No diarrhea, no nausea, no vomiting, no abdominal pain. NEUROLOGICAL: No headaches, no weakness, no numbness. GENITOURINARY: Denies any burning micturition, frequency, or urgency. The rest of the 14-point review of systems is negative. PHYSICAL EXAMINATION: GENERAL: The patient is alert and oriented x3, not in any acute distress. Well developed, well nourished. HEENT: Pupils are round and equally reacting to light. EOMI. No scleral icterus. No conjunctival pallor. Normocephalic, atraumatic. No pharyngeal erythema. No thyromegaly. CARDIOVASCULAR: S1 and S2 present. No murmurs, rubs, or gallops. PULMONARY: Chest is clear to auscultation, no wheezing or crackles. ABDOMEN: Soft, nontender, nondistended, normoactive bowel sounds. No palpable organomegaly. MUSCULOSKELETAL: No joint swelling or deformity. EXTREMITIES: No cyanosis, clubbing, or pedal edema. NEUROLOGICAL: Gross neurological examination did not reveal any focal deficits. SKIN: No rashes. Assessment and plan -Chest pain atypical he appears to be mostly GI upset and probable gastritis patient will be given a Prilosec for 14 days patient will follow with Dr. Jasso as an outpatient. 2-D echocardiogram showing normal LV function LVEF 55%. Carotid artery disease with CABG in the past and the multiple stents in the past next and have her gases. 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 Patient Baseline creatinine appears to be around 1.6-1.7 Follow-up with PCP and cardiology in the outpatient setting. Patient Condition at Discharge: Stable Plan - Discharge Summary Discharge Rx Participant: No New Discharge Prescriptions: New Omeprazole [PriLOSEC] 40 mg PO -BRKFST #14 capsule. Acetaminophen [Tylenol Arthritis] 650 mg PO Q6HR PRN #30 tab PRN Reason: Pain Discontinued Naproxen [Naprosyn] 500 mg PO BID No Action Metoprolol Tartrate [Lopressor] 50 mg PO BID Cholecalciferol [Vitamin D3 (25 Mcg = 1000 Iu)] 1,000 unit PO DAILY Aspirin [Adult Low Dose Aspirin EC] 81 mg PO DAILY Nitroglycerin Sl Tabs [Nitrostat] 0.4 mg SUBLINGUAL Q5M PRN #25 tab PRN Reason: Chest Pain Atorvastatin [Lipitor] 40 mg PO HS Clopidogrel [Plavix] 75 mg PO DAILY #90 tab EPINEPHrine (Auto Inject) [Epipen] 0.3 mg IM ONCE PRN PRN Reason: Anaphylaxis Discharge Medication List Cholecalciferol [Vitamin D3 (25 Mcg = 1000 Iu)] 1,000 unit PO DAILY 02/26/17 [History] Metoprolol Tartrate [Lopressor] 50 mg PO BID 02/26/17 [History] Aspirin [Adult Low Dose Aspirin EC] 81 mg PO DAILY 10/28/18 [History] Nitroglycerin Sl Tabs [Nitrostat] 0.4 mg SUBLINGUAL Q5M PRN #25 tab 11/06/18 [Rx] Atorvastatin [Lipitor] 40 mg PO HS 04/02/20 [History] Clopidogrel [Plavix] 75 mg PO DAILY #90 tab 04/07/20 [Rx] EPINEPHrine (Auto Inject) [Epipen] 0.3 mg IM ONCE PRN 12/03/20 [History] Acetaminophen [Tylenol Arthritis] 650 mg PO Q6HR PRN #30 tab 12/04/20 [Rx] Omeprazole [PriLOSEC] 40 mg PO AC-BRKFST #14 capsule. 12/04/20 [Rx] Follow up Appointment(s)/Referral(s): Mario Jasso MD [STAFF PHYSICIAN] - 1 Week (Please call the office to make followup appointment) Lucinda Suh III, MD [Primary Care Provider] - 3 Days (Please call office to make followup appointment) Patient Instructions/Handouts: Chest Pain (DC), Heart Healthy Diet (DC) Discharge Disposition: HOME SELF-CARE
--- NOTE | 2020-12-05 12:38 | P.PN ---
Subjective Progress Note Date: 12/05/20 HISTORY OF PRESENT ILLNESS: This is a 84-year-old male with a past medical history significant for very disease with previous CABG 5 and stenting 4, hypertension, hyperlipidemia, and osteoarthritis. Patient follows in the office with Dr. Jasso. We have been asked to see the patient in consultation for chest pain. Patient examined at the bedside. Patient reports having chest pain in the middle of his chest yesterday. He denied any radiation of the pain. He also reports increased abdominal bloating and gas. He states this has been going on for the past 4 days but it has gotten worse yesterday. He states it may have been GI related so he was taking Pepto at home which helped for a little while and then his symptoms would return. He denies any shortness of breath at this time. He states with his previous stenting he always has felt short of breath and didn't have much chest pain which this time felt different than his previous stents. Patient does report a history of osteoarthritis and has been taking naproxen daily. He reports about a month ago he increased his dose of naproxen to 500 mg twice a day. EKG reveals sinus mechanism with no signs of acute ischemia Chest xray negative for acute process Laboratory data: WBC 5.03. Hemoglobin 13.0. Platelet count 152. Sodium 141. Potassium 4.3. BUN 30. Creatinine 2.0. Troponin negative 3. ProBNP 970. Current home cardiac medications include metoprolol tartrate 50 mg twice a day, Plavix 75 mg daily, Lipitor 40 mg daily, and aspirin 81 mg daily Patient underwent cardiac catheterization in March 2020 chronic occluded right coronary artery and LAD. Patent saphenous vein to the right coronary art dane. Patent KUMAR to LAD. Totally occluded proximal left circumflex, which is new since 2019. Patient underwent stenting of the circumflex at that time. 12/05/2020 Patient examined this morning at the bedside. Patient denies any chest pain or pressure. He denies shortness of breath. Vital signs are stable. Echocardiogram performed revealing ejection fraction greater than 55%. Mild aortic regurgitation. [id number] regurgitation. The patient is anxious to be discharged home today. PHYSICAL EXAM: VITAL SIGNS: Reviewed. GENERAL: Well-developed in no acute distress. HEENT: Head is normocephalic. Pupils are equal, round. Sclerae anicteric. Mucous membranes of the mouth are moist. Neck supple. No JVD or thyromegaly LUNGS: Respirations even and unlabored. Lungs essentially clear to auscultation bilaterally. HEART: Regular rate and rhythm. S1 and S2 heard. ABDOMEN: Soft. Nondistended. Nontender. EXTREMITIES: Normal range of motion. No clubbing or cyanosis. Peripheral pulses intact. No lower extremity edema NEUROLOGIC: Awake and alert. Oriented x 3. ASSESSMENT: Chest pain, atypical, with complaints of increased bloating and gas Coronary artery disease with previous CABG and PCI Hypertension Hyperlipidemia PLAN: Continue current cardiac medications Patient is stable for discharge home today from a cardiac perspective He is to follow up outpatient Nurse practitioner note has been reviewed by physician. Signing provider agrees with the documented findings, assessment, and plan of care. Objective - Vital Signs Vital signs: Vital Signs Temp 97.5 F L 12/05/20 07:00 Pulse 51 L 12/05/20 07:00 Resp 18 12/05/20 08:00 BP 161/77 12/05/20 07:00 Pulse Ox 99 12/05/20 07:00 Intake & Output 12/04/20 12/05/20 12/05/20 18:59 06:59 18:59 Intake Total 180 Balance 180 Intake: Oral 180 Other: Voiding Method Toilet Toilet Toilet # Voids 3 2 - Labs CBC & Chem 7: 12/04/20 05:49 12/04/20 05:49
== END 2020-12-05 13:13 | disposition home or self-care (01) ==
LOC: EC 17:46 → 6NMEDSUR 19:46
PROVIDERS: ADMIT Internal Medicine; ATTEND Internal Medicine
DX: R07.89 Other chest pain (principal); R14.0 Abdominal distension (gaseous); I25.10 Atherosclerotic heart disease of native coronary artery without angina pectoris; I12.9 Hypertensive chronic kidney disease with stage 1 through stage 4 chronic kidney disease, or unspecified chronic kidney disease; N18.30 Chronic kidney disease, stage 3 unspecified; E78.5 Hyperlipidemia, unspecified; K59.00 Constipation, unspecified; M81.0 Age-related osteoporosis without current pathological fracture; N40.0 Benign prostatic hyperplasia without lower urinary tract symptoms; M19.90 Unspecified osteoarthritis, unspecified site; K21.9 Gastro-esophageal reflux disease without esophagitis; H54.8 Legal blindness, as defined in USA; I44.0 Atrioventricular block, first degree; Z79.82 Long term (current) use of aspirin; Z79.899 Other long term (current) drug therapy; Z79.02 Long term (current) use of antithrombotics/antiplatelets; Z79.1 Long term (current) use of non-steroidal anti-inflammatories (NSAID); Z95.1 Presence of aortocoronary bypass graft; Z95.5 Presence of coronary angioplasty implant and graft; Z96.653 Presence of artificial knee joint, bilateral; Z98.42 Cataract extraction status, left eye; Z98.41 Cataract extraction status, right eye; Z87.891 Personal history of nicotine dependence; Z98.890 Other specified postprocedural states
CPT/HCPCS: 96374; 99285; 36415; 93005; 93306; 83880; 80053; 80048; 83690; 83735; 84484; 85025 ×2; 85610; 85730; 71046; 74019; G0378 ×3; J2270

== ENCOUNTER → 2021-05-02 | Outpatient (CLI) | payer MEDICARE | END | disposition home or self-care (01) | LOC: LABWHC1 13:06 | PROVIDERS: ATTEND Family Medicine | DX: U07.1 COVID-19 (principal) | CPT/HCPCS: 87502; U0003; C9803; U0005 ==

== ENCOUNTER 2021-10-06 10:12 | Day surgery (SDC) | payer MEDICARE ==
[2021-10-05 09:03] VITALS: BMI 32.5
[~2021-10-06 10:12] MED LIST changes: +HEPARIN SODIUM,PORCINE 10,000 UNIT in SODIUM CHLORIDE 0.9% 1,000 ML IRRIGATION PRN; +HEPARIN SODIUM,PORCINE 2,500 UNIT in SODIUM CHLORIDE 0.9% 250 ML IRRIGATION PRN; +SODIUM CHLORIDE 0.9% 1,000 ML in EMPTY BAG 1 BAG IV SCH
[2021-10-06] MEDS ORDERED: SODIUM CHLORIDE 0.9% 1,000 ML IV ONE (10:24)
[2021-10-06 10:39] VITALS: RESP 16; TEMP 97.7
[2021-10-06 11:04] LABS: Basophils % (A) 0 %; Eosinophils # (A) 0.1 k/uL (0-0.7); Eosinophils % (A) 3 %; HCT 42.9 % (39.0-53.0); HGB 14.1 gm/dL (13.0-17.5); Lymphocytes # (A) 0.9 k/uL (1.0-4.8); Lymphocytes % (A) 18 %; MCH 32.8 pg (25.0-35.0); MCHC 32.8 g/dL (31.0-37.0); Mean Platelet Volume 9.2; Monocytes # (A) 0.4 k/uL (0-1.0); Monocytes % (A) 7 %; Neutrophils # (A) 3.4 k/uL (1.3-7.7); Neutrophils % (A) 69 %; Platelet Count 174 k/uL (150-450); RBC 4.29 m/uL (4.30-5.90); RDW 11.9 % (11.5-15.5)
[2021-10-06 11:06] LABS: Calcium 9.2 mg/dL (8.4-10.2); Potassium 5.1 mmol/L (3.5-5.1)
[2021-10-06] MEDS ORDERED: fentaNYL (PF) 50 MCG/ML 2 ML AMP ONE (11:16)
[2021-10-06] MEDS ORDERED: fentaNYL (PF) 50 MCG/ML 2 ML AMP IVP ONE (11:25)
[2021-10-06] MEDS ORDERED: LIDOCAINE 1% INJ 10MG/ML (30 ML VIAL-PF) SQ ONE (11:33)
[2021-10-06] MEDS ORDERED: IOPAMIDOL-370 125ML BTL INJ ONE (11:57)
[2021-10-06] MEDS ORDERED: RX INFO: IV CONTRAST WAS GIVEN 1 EACH MISC MISCELLANE PRN (12:02)
--- NOTE | 2021-10-06 12:11 | P.CARDCATH ---
Date of Procedure: 10/06/21 Description of Procedure: Cardiac Catheterization: Patient is an 85-year-old male with a known history of coronary disease status post CABG and multiple PCI who presented with progressive dyspnea. He had an abnormal MPI. Recommendations were made regarding cardiac catheterization, the risks and the complications were discussed with the patient who is in full understanding and agreement. Procedure Description: Patient was brought to slab tripper in fasting semi-sedated state after receiving Fentanyl and Benadryl achieiving moderate conscious sedated state. Using Xylocaine Anesthesia and Seldinger technique, a 6-Togolese sheath was introduced in the right femoral artery . Subsequently, selective coronary angiography performed using a 6-Togolese 4 bend right José Miguel and 4-1/2 left José Miguel catheter. Multiple views of the coronary artery including hemiaxial views were obtained. The right José Miguel was used to cannulate the KUMAR to the LAD and SVG to the RCA, subsequently a 6-Togolese Pigtail catheter was used to cross the aortic valve and LVEDP was calculated. Following that, catheter and sheath were removed. Hemostasis was obtained with compression of the right groin. There was no immediate complication. Patient was returned to room in stable condition. There was no immediate complications. Findings: Left main: This is a large size vessel, bifurcating into LAD and left circumflex, the left main has a 10% plaque distally. LAD: This vessel is totally occluded proximally with no significant antegrade flow Left circumflex: This is a large nondominant vessel, giving rise to a large obtuse marginal branch, the stented segment in the proximal, mid and distal OM and circumflex are patent with mild intimal disease. RCA: This vessel is chronically occluded proximally. SVG to RCA: The proximal and distal anastomotic sites are patent. The flow in the PDA is brisk. The stented segment in the proximal SVG is patent. KUMAR to the LAD: The distal anastomotic site is patent the flow into the LAD is brisk. Left Ventriculogram: Was not performed Hemodynamics: There was no gradient across the aortic valve, LVEDP 16-20 minutes of mercury. Conclusion: 1. Chronically occluded RCA and LAD 2. Patent stents in the proximal, mid and distal left circumflex 3. Patent stent in the proximal SVG to the RCA 4. Patent KUMAR to the LAD Recommendations: I see no significant progression of disease compared to 2020, I would recommend continuing present medical regimen and evaluate other etiology for the progressive dyspnea. The findings and recommendations were discussed with the patient and his family, they are in full understanding and agreement. Duration of sedation is 24 minutes.
[2021-10-06] MEDS ORDERED: SODIUM CHLORIDE 0.9% 1,000 ML IV SCH (12:15)
[2021-10-06 17:31] VITALS: BP 129/79; PULSE 61
[2021-10-06] MEDS ORDERED: ATORVASTATIN 40 MG TAB PO SCH (21:00)
[2021-10-06] MEDS ORDERED: METOPROLOL TARTRATE 50 MG TAB PO SCH (21:00)
[2021-10-07] MEDS ORDERED: NON FORMULARY DRUG (Aspirin [Adult Low Dose Aspirin Ec] 81 MG Tablet.Dr) PO SCH (09:00)
== END 2021-10-06 18:18 | disposition home or self-care (01) ==
LOC: CATHCVL 10:12
PROVIDERS: ATTEND Internal Medicine Interventional Cardiology
DX: I25.10 Atherosclerotic heart disease of native coronary artery without angina pectoris (principal); I25.82 Chronic total occlusion of coronary artery; Z95.5 Presence of coronary angioplasty implant and graft; Z95.1 Presence of aortocoronary bypass graft; I12.9 Hypertensive chronic kidney disease with stage 1 through stage 4 chronic kidney disease, or unspecified chronic kidney disease; N18.9 Chronic kidney disease, unspecified; E78.2 Mixed hyperlipidemia; Z79.82 Long term (current) use of aspirin; Z79.899 Other long term (current) drug therapy; Z82.49 Family history of ischemic heart disease and other diseases of the circulatory system; Z87.891 Personal history of nicotine dependence; Z20.822 Contact with and (suspected) exposure to COVID-19
CPT/HCPCS: 93459; 80048; 85025; 87635; C1769; J2001; J3010; Q9967

== ENCOUNTER → 2021-10-25 | Outpatient (CLI) | payer MEDICARE ==
--- NOTE | 2021-10-25 13:54 | CT ---
EXAMINATION TYPE: CT chest wo con DATE OF EXAM: 10/25/2021 INDICATION: SOB CT DLP: 1156.9 mGy.cm Automated Exposure Control for Dose Reduction was Utilized. TECHNIQUE AND CONTRAST: Axial CT scan of the chest in the supine and prone positions as per high-resolution protocol. No IV c ontrast administration. COMPARISON: X-ray dated 12/03/2020 FINDINGS: Minimal bilateral peripheral pulmonary reticulations, mainly seen in the lung bases. No obvious groun dglass opacities, bronchiectasis, honeycombing or cystic changes. Suboptimal assessment for pulmonary nodules. Patent trachea and main bronchi. Scattered calcified pleural plaques. No pleural or pericar dial effusion. Cardiomegaly. Coronary and arterial atherosclerotic calcification. The pulmonary trunk measures up to 3.6 cm suggestive of pulmonary hypertension. No pathologically enlarged lymph nodes in the chest. Sm all kidneys, please correlate with renal function tests. Sternotomy wire sutures. Degenerative change s of the lower cervical and lower thoracic spine. IMPRESSION: No convincing evidence of interstitial lung disease or significant pulmonary fibrotic changes. Mild n onspecific pulmonary changes and other findings as detailed above.
== END | disposition home or self-care (01) ==
LOC: RADCTMAIN 11:17
PROVIDERS: ATTEND Internal Medicine Critical Care Medicine
DX: R06.02 Shortness of breath (principal)
CPT/HCPCS: 71250

== ENCOUNTER → 2023-10-01 | Outpatient (CLI) | payer MEDICARE ==
--- NOTE | 2023-10-01 19:58 | US ---
EXAMINATION TYPE: US arterial LE single level DATE OF EXAM: 10/01/2023 10:05 AM CLINICAL INDICATION: Male, 87 years old with history of I73.9 PERIPHERAL VASCULAR DISEASE, UNSPECIFIE D; PVD History of: Smoker: Previous Hypertension: no Diabetic: no Hyperlipidemia: no TIA/CVA: yes Previous Vascular Surgery: yes CAD: no KS: yes Vascular Ulcers: no Claudication: no Gangrene: no Doppler Waveforms: Right: Multiphasic with monophasic digit Left: Multiphasic with monophasic digit Right Brachial Pressure: 123 Left Brachial Pressure: 114 Ankle-Brachial Indices: Right: 1.36 Left: 1.34 (Vessel hardening > 1.4; Normal 0.9 - 1.4, Moderate 0.7 - 0.9, Severe 0.5-0.7) Toe Brachial Indices: Right: 0.37 Left: 0.47 IMPRESSION: Normal ankle-brachial indices bilaterally. Abnormal bilateral toe brachial indices sugge sting at least mild peripheral vascular disease in both distal lower extremities.
== END | disposition home or self-care (01) ==
LOC: RADUSWWP 09:25
PROVIDERS: ATTEND Internal Medicine Interventional Cardiology
DX: I73.9 Peripheral vascular disease, unspecified (principal)
CPT/HCPCS: 93922